=== PATIENT | male | born 1985 | race Caucasian/White ===

== ENCOUNTER 2022-11-27 20:00 | Emergency (ER) | payer OTHER, SELFPAY ==
[2022-11-27] VITALS (11 sets, daily range): BP systolic 113–125; BP diastolic 65–69; PULSE 55–85; RESP 13–22; TEMP 36.6; O2SAT 96–99; BMI 21.9
--- NOTE | 2022-11-27 20:14 | ECG_ITS ---
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
--- NOTE | 2022-11-27 20:17 | ED_ITS ---
Documented by User: BARTOLOME Valdez 11/27/22 22:00 HPI - Chest Pain General Chief Complaint: Chest Pain Stated Complaint: CHEST PAIN Time Seen by Provider: 11/27/22 20:01 Source: patient Mode of arrival: walk-in Limitations: no limitations History of Present Illness HPI narrative: Patient is a 37-year-old male who presents to the emergency department for three hour history of pain in the inferior sternum and epigastrium. He states occasionally the pain radiates through to his back and across the upper abdomen. He states it is a sharp and dull pain. He has had no objective fevers, upper respiratory symptoms. He has a chronic cough and states that he is currently trying to quit smoking. He was a one pack per day cigarette smoker, he is now down to a quart of a pack per day. He denies any history of heart problems, no previous abdominal surgeries. He did have a resection of lung tissue to the right lower lung secondary to pneumothorax fourteen years ago. 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 He has not had any additional surveillance or follow-up for this. He has not had any hemoptysis, leg swelling. He took ibuprofen and a muscle relaxant prior to arrival without improvement. Risk Factors Coronary artery disease risk factors: smoking history Related Data Previous Rx's Medication Instructions Recorded methylprednisolone 4 mg tablets in See Rx Instructions .Route 11/27/22 a dose pack (Medrol (Trav)) .COMPLEX #21 ea tramadol 50 mg tablet 50 mg PO Q4H PRN pain #15 tabs 11/27/22 Allergies Allergy/AdvReac Type Severity Reaction Status Date / Time No Known Drug Allergies Allergy Verified 11/27/22 20:07 Review of Systems ROS Constitutional Denies: fever or chills Ears, nose, mouth, and throat Denies: throat pain or neck pain Cardiovascular Reports: chest pain Respiratory Reports: cough; Denies: shortness of breath Gastrointestinal Reports: abdominal pain; Denies: nausea or vomiting Musculoskeletal Reports: back pain; Denies: neck pain Integumentary/Breast Denies: rash Neurological Denies: headache PFSH PFSH Social History Smoking status: Current every day smoker Exam Narrative Exam Narrative: Gen.: Awake, alert, in no distress Head: Normocephalic, atraumatic ENT: Moist mucous membranes Respiratory: No respiratory distress, lungs clear bilaterally Cardio: Regular rate and rhythm; no appreciable murmur Gastrointestinal: Abdomen is soft, nondistended and nontender to palpation Extremities: Moves extremities equally, no pedal edema Psych: Normal mood and affect Neuro: No focal neuro deficit Skin: Warm, dry, intact Constitutional Vital Signs, click to edit/add: Last Vital Signs Temp 97.8 F 11/27/22 20:03 Pulse 57 L 11/27/22 21:20 Resp 21 11/27/22 21:20 BP 115/65 11/27/22 21:00 Pulse Ox 98 11/27/22 21:20 O2 Del Method Room Air 11/27/22 20:19 Course Vital Signs Vital signs: Vital Signs Temperature 97.8 F 11/27/22 20:03 Pulse Rate 76 11/27/22 20:03 Respiratory Rate 16 11/27/22 20:03 Blood Pressure 125/69 11/27/22 20:03 Pulse Oximetry 98 11/27/22 20:03 Oxygen Delivery Method Room Air 11/27/22 20:03 Temperature 97.8 F 11/27/22 20:03 Pulse Rate 57 L 11/27/22 21:20 Respiratory Rate 21 11/27/22 21:20 Blood Pressure 115/65 11/27/22 21:00 Pulse Oximetry 98 11/27/22 21:20 Oxygen Delivery Method Room Air 11/27/22 20:19 MDM - Chest Pain MDM Narrative Medical decision making narrative: Patient treated with IV fluids, Toradol, Solu-Medrol, Protonix. He has stable vital signs, no EKG changes. Abdomen is soft and benign in the Emergency Room. Labs studies including d-dimer, troponin, LFTs and lipase are within normal limits. Patient sent for abdominal and chest x-rays which showed stable area to the right lower lung. I did review previous CTA of the chest as well as CT of the abdomen and pelvis. Patient had a PET scan one year ago for the abnormal findings in the right lower lung as well as to the liver. 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 I gave him a copy of these results and discuss this with him, it was recommended by the radiologist for a fourteen month follow-up of imaging to the area which was approximately one month ago. Patient was encouraged follow-up with his PCP, have repeat imaging done to confirm benign etiology of the areas. He will be treated for chest wall pain and abdominal pain, likely pleurisy with steroids and a short course of analgesics. Work note provided. Follow-up with PCP and return to the Emergency Room if symptoms change or worsen. He is resting comfortably at reevaluation. Medical Records Data Attestation: I reviewed the patient's medical records. Lab Data Attestation: I reviewed the patient's lab results. Labs: Lab Results 11/27/22 Range/Units 20:00 WBC 8.6 (4.0-11.0) 10^3/uL RBC 4.28 L (4.70-6.10) 10^6/uL Hgb 14.0 (14.0-18.0) g/dL Hct 40.8 L (42.0-54.0) % MCV 95.3 H (80.0-94.0) fL MCH 32.7 (25.9-34.0) pg MCHC 34.3 (29.9-35.2) g/dL RDW 12.7 (11.0-15.0) % Plt Count 217 (150-450) 10^3/uL MPV 11.3 (9.5-13.5) fL Neut % (Auto) 48.1 (43.0-75.0) % Lymph % (Auto) 39.7 (20.5-60.0) % [place] % (Auto) 9.6 (1.7-12.0) % Eos % (Auto) 2.1 (0.9-7.0) % Baso % (Auto) 0.3 (0.2-2.0) % Neut # (Auto) 4.1 (1.4-6.5) 10^3/uL Lymph # (Auto) 3.4 (1.2-3.8) 10^3/uL [place] # (Auto) 0.8 (0.3-0.8) 10^3/uL Eos # (Auto) 0.2 (0.0-0.7) 10^3/uL Baso # (Auto) 0.0 (0.0-0.1) 10^3/uL Abs Immat Gran (auto) 0.02 (0.00-0.03) 10^3/uL Imm/Tot Granulo (auto) 0.2 (0.0-0.5) % PT 10.4 (9.0-11.6) sec INR 0.98 D-Dimer 0.25 (<=0.59) mg/L FEU Sodium 138 (136-145) mmol/L Potassium 3.7 (3.5-5.1) mmol/L Chloride 103 (98-107) mmol/L Carbon Dioxide 28.2 (21.0-32.0) mmol/L Anion Gap 10.5 BUN 14.0 (7.0-18.0) mg/dL Creatinine 1.35 H (0.70-1.30) mg/dL Est GFR ( Amer) >60 (>=60) Est GFR (Non-Af Amer) 59 L (>=60) BUN/Creatinine Ratio 10.4 Glucose 97 (74-106) mg/dL Calcium 8.7 (8.5-10.1) mg/dL Total Bilirubin 0.6 (0.2-1.0) mg/dL AST 28 (15-37) U/L ALT 28 (16-63) U/L Alkaline Phosphatase 89 (46-116) U/L Troponin I High Sens 5.7 (4.0-76.1) pg/mL NT-Pro-B Natriuret Pep 143.0 (<=450.0) pg/mL Total Protein 7.7 (6.4-8.2) g/dL Albumin 4.3 (3.4-5.0) g/dL Globulin 3.4 g/dL Albumin/Globulin Ratio 1.3 Lipase 42.0 L (73.0-393.0) U/L Imaging Data Abdominal x-ray: Attestation: I have reviewed the pertinent imaging results. ECG Data Attestation: I personally reviewed and interpreted this ECG as follows: (Normal sinus rhythm at a rate of sixty-seven, no acute ST elevation or ectopy. EKG reviewed by attending physician) ECG interpretation date: 11/27/22 ECG interpretation time: 20:21 Heart Score History: Slightly/Non-Suspicious ECG: Normal Age: <45 years Risk Factors: 1 or 2 Risk Factors Troponin: <Normal Limit Total Heart Score Recommendations & Risks:: 1 Discharge Plan Discharge Chief Complaint: Chest Pain Clinical Impression: Abdominal pain, Chest pain Patient Disposition: Home, Self-Care Time of Disposition Decision: 21:54 Condition: Good Prescriptions / Home Meds: New tramadol 50 mg tablet 50 mg PO Q4H PRN (Reason: pain) Qty: 15 0RF Rx Instructions: DX: R07.9 methylprednisolone [Medrol (Trav)] 4 mg tablets,dose pack See Rx Instructions .ROUTE .COMPLEX Qty: 21 0RF Rx Instructions: Taper as directed Instructions: Chest Pain (ED), Abdominal Pain (ED) Stand Alone Forms: Portal Instructions Referrals: CRISELDA NEAL [Primary Care Provider] - 1 week Discharge Date/Time: 11/27/22 22:06 Documented by User: Jonathan Singer MD 11/28/22 06:47 HPI - Chest Pain General Chief Complaint: Chest Pain Stated Complaint: CHEST PAIN Time Seen by Provider: 11/27/22 20:01 Related Data Previous Rx's Medication Instructions Recorded methylprednisolone 4 mg tablets in See Rx Instructions .Route 11/27/22 a dose pack (Medrol (Trav)) .COMPLEX #21 ea tramadol 50 mg tablet 50 mg PO Q4H PRN pain #15 tabs 11/27/22 Allergies Allergy/AdvReac Type Severity Reaction Status Date / Time No Known Drug Allergies Allergy Verified 11/27/22 20:07 [facility] Social History Smoking status: Current every day smoker Exam Constitutional Vital Signs, click to edit/add: Last Vital Signs Temp 97.8 F 11/27/22 20:03 Pulse 57 L 11/27/22 21:20 Resp 21 11/27/22 21:20 BP 115/65 11/27/22 21:00 Pulse Ox 98 11/27/22 21:20 O2 Del Method Room Air 11/27/22 20:19 Course Vital Signs Vital signs: Vital Signs Temperature 97.8 F 11/27/22 20:03 Pulse Rate 76 11/27/22 20:03 Respiratory Rate 16 11/27/22 20:03 Blood Pressure 125/69 11/27/22 20:03 Pulse Oximetry 98 11/27/22 20:03 Oxygen Delivery Method Room Air 11/27/22 20:03 Temperature 97.8 F 11/27/22 20:03 Pulse Rate 57 L 11/27/22 21:20 Respiratory Rate 21 11/27/22 21:20 Blood Pressure 115/65 11/27/22 21:00 Pulse Oximetry 98 11/27/22 21:20 Oxygen Delivery Method Room Air 11/27/22 20:19 MDM - Chest Pain Lab Data Labs: Lab Results 11/27/22 Range/Units 20:00 WBC 8.6 (4.0-11.0) 10^3/uL RBC 4.28 L (4.70-6.10) 10^6/uL Hgb 14.0 (14.0-18.0) g/dL Hct 40.8 L (42.0-54.0) % MCV 95.3 H (80.0-94.0) fL MCH 32.7 (25.9-34.0) pg MCHC 34.3 (29.9-35.2) g/dL RDW 12.7 (11.0-15.0) % Plt Count 217 (150-450) 10^3/uL MPV 11.3 (9.5-13.5) fL Neut % (Auto) 48.1 (43.0-75.0) % Lymph % (Auto) 39.7 (20.5-60.0) % [place] % (Auto) 9.6 (1.7-12.0) % Eos % (Auto) 2.1 (0.9-7.0) % Baso % (Auto) 0.3 (0.2-2.0) % Neut # (Auto) 4.1 (1.4-6.5) 10^3/uL Lymph # (Auto) 3.4 (1.2-3.8) 10^3/uL [place] # (Auto) 0.8 (0.3-0.8) 10^3/uL Eos # (Auto) 0.2 (0.0-0.7) 10^3/uL Baso # (Auto) 0.0 (0.0-0.1) 10^3/uL Abs Immat Gran (auto) 0.02 (0.00-0.03) 10^3/uL Imm/Tot Granulo (auto) 0.2 (0.0-0.5) % PT 10.4 (9.0-11.6) sec INR 0.98 D-Dimer 0.25 (<=0.59) mg/L FEU Sodium 138 (136-145) mmol/L Potassium 3.7 (3.5-5.1) mmol/L Chloride 103 (98-107) mmol/L Carbon Dioxide 28.2 (21.0-32.0) mmol/L Anion Gap 10.5 BUN 14.0 (7.0-18.0) mg/dL Creatinine 1.35 H (0.70-1.30) mg/dL Est GFR ( Amer) >60 (>=60) Est GFR (Non-Af Amer) 59 L (>=60) BUN/Creatinine Ratio 10.4 Glucose 97 (74-106) mg/dL Calcium 8.7 (8.5-10.1) mg/dL Total Bilirubin 0.6 (0.2-1.0) mg/dL AST 28 (15-37) U/L ALT 28 (16-63) U/L Alkaline Phosphatase 89 (46-116) U/L Troponin I High Sens 5.7 (4.0-76.1) pg/mL NT-Pro-B Natriuret Pep 143.0 (<=450.0) pg/mL Total Protein 7.7 (6.4-8.2) g/dL Albumin 4.3 (3.4-5.0) g/dL Globulin 3.4 g/dL Albumin/Globulin Ratio 1.3 Lipase 42.0 L (73.0-393.0) U/L Heart Score Total Heart Score Recommendations & Risks:: 1 Discharge Plan Discharge Chief Complaint: Chest Pain Clinical Impression: Abdominal pain, Chest pain Patient Disposition: Home, Self-Care Time of Disposition Decision: 21:54 Condition: Good Prescriptions / Home Meds: New tramadol 50 mg tablet 50 mg PO Q4H PRN (Reason: pain) Qty: 15 0RF Rx Instructions: DX: R07.9 methylprednisolone [Medrol (Trav)] 4 mg tablets,dose pack See Rx Instructions .ROUTE .COMPLEX Qty: 21 0RF Rx Instructions: Taper as directed Instructions: Chest Pain (ED), Abdominal Pain (ED) Stand Alone Forms: Portal Instructions Referrals: CRISELDA NEAL [Primary Care Provider] - 1 week Discharge Date/Time: 11/27/22 22:06
--- NOTE | 2022-11-27 20:18 | PC.NURSE ---
Pt presents to ER for chest pain that has been going on since approximately 5pm Pt states he was at work when the pain began Pt states he took Motrin and a muscle relaxer prior to arrival Pt states the pain worsens with movement and deep breaths Pt has a history of pneumothorax on the right side and was told last year that there was a mass on the base of the right lung Pt denies any recent illness or injuries
[2022-11-27 20:23] LABS: Basophils Percent Auto 0.3 % (0.2-2.0); Eosinophils Absolute Auto 0.2 10^3/uL (0.0-0.7); Eosinophils Percent Auto 2.1 % (0.9-7.0); Hematocrit 40.8 % (42.0-54.0); Immature Granulocytes Abs Auto 0.02 10^3/uL (0.00-0.03); Immature Granulocytes Pct Auto 0.2 % (0.0-0.5); Lymphocytes Absolute Auto 3.4 10^3/uL (1.2-3.8); Lymphocytes Percent Auto 39.7 % (20.5-60.0); Mean Corpuscular HGB Conc 34.3 g/dL (29.9-35.2); Mean Corpuscular Hemoglobin 32.7 pg (25.9-34.0); Mean Corpuscular Volume 95.3 fL (80.0-94.0); Mean Platelet Volume 11.3 fL (9.5-13.5); Monocytes Absolute Auto 0.8 10^3/uL (0.3-0.8); Monocytes Percent Auto 9.6 % (1.7-12.0); Neutrophils Absolute Auto 4.1 10^3/uL (1.4-6.5); Neutrophils Percent Auto 48.1 % (43.0-75.0); Platelet Count 217 10^3/uL (150-450); Red Blood Count 4.28 10^6/uL (4.70-6.10); Red Cell Distribution Width 12.7 % (11.0-15.0); White Blood Count 8.6 10^3/uL (4.0-11.0)
[2022-11-27 20:31] LABS: D Dimer 0.25 mg/L FEU (<=0.59); INR 0.98; Prothrombin Time 10.4 sec (9.0-11.6)
[2022-11-27 20:32] LABS: Alanine Aminotransferase 28 U/L (16-63); Albumin Globulin Ratio 1.3; Albumin Level 4.3 g/dL (3.4-5.0); Alkaline Phosphatase 89 U/L (46-116); Anion Gap 10.5; Aspartate Amino Transferase 28 U/L (15-37); BUN Creatinine Ratio 10.4; Bilirubin Total 0.6 mg/dL (0.2-1.0); Calcium 8.7 mg/dL (8.5-10.1); Carbon Dioxide 28.2 mmol/L (21.0-32.0); Chloride 103 mmol/L (98-107); Estimated GFR (African America >60 (>=60); Estimated GFR (Non-African Ame 59 (>=60); Globulin 3.4 g/dL; Glucose 97 mg/dL (74-106); Potassium 3.7 mmol/L (3.5-5.1); Sodium 138 mmol/L (136-145); Total Protein 7.7 g/dL (6.4-8.2)
[2022-11-27 20:38] LABS: Troponin I High Sensitivity 5.7 pg/mL (4.0-76.1)
--- NOTE | 2022-11-27 20:40 | XR_ITS ---
The [address] [address] Patient Name: CLOVIS ROBLEDO MRN: [id number] date: 1985 Sex: M Assigned Patient Location: ER Current Patient Location: Accession/Order Number: [id number] Exam Date: 11/27/2022 21:25 Report Date: 11/27/2022 22:42 At the request of: FARIDEH SAUNDERS Procedure: XR acute abdomen series EXAMINATION: XR acute abdomen series 11/27/2022 7:40 PM PDT HISTORY: Chest pain/abdominal pain COMPARISONS: Chest x-ray 01/29/2022 CT chest 09/01/2021 FINDINGS: Chest findings: Lines/tubes/other: None. Heart and mediastinum: The heart and the mediastinum are within normal limits for technique. Bones: No acute osseous abnormality. Lungs: Juxtapleural nodule in the right lateral base, similar. Right pleural flattening and right pleural calcifications, similar. No new pulmonary opacity. No pulmonary edema. Pleura: There is no significant pleural effusion or pneumothorax. Other: None. Abdominal findings: Nonobstructive bowel gas pattern. No pneumoperitoneum, pneumatosis, or portal venous gas. No abnormal soft tissue calcifications. Stool burden is average. XR/XR acute abdomen series IMPRESSION: No acute abnormality demonstrated in the chest or abdomen. Electronically authenticated by: ISAC ANTONIO Date: 11/27/2022 22:42
[2022-11-27] MEDS: METHYLPREDNISOLONE SOD SUCC PF 125 MG/2 ML VIAL IVP (20:48)
[2022-11-27] MEDS: ONDANSETRON PF 4 MG/2 ML VIAL IV (20:48)
[2022-11-27] MEDS: KETOROLAC TROMETHAMINE 30 MG/ML VIAL IVP (20:48)
[2022-11-27] MEDS: 0.9 % SODIUM CHLORIDE 1,000 ML 999 ML IV (20:49)
[2022-11-27] MEDS: PANTOPRAZOLE SODIUM 40 MG VIAL IV (20:49)
== END 2022-11-27 22:06 | disposition home or self-care (01) ==
PROVIDERS: Physician Assistant; Emergency Provider Internal Medicine; PCP Nurse Practitioner Family
DX: R07.9 Chest pain, unspecified (principal); R10.9 Unspecified abdominal pain; F17.210 Nicotine dependence, cigarettes, uncomplicated; Z90.2 Acquired absence of lung [part of]
CPT/HCPCS: 36415; 74022; 80053; 83690; 83880; 84484; 85025; 85378; 85610; 93005; 96374; 96375; 99285; J2930

== ENCOUNTER 2024-10-01 09:48 | Outpatient (OUT) | payer OTHER, SELFPAY ==
--- OUTSIDE RECORDS SUMMARY | 2015-05-30 09:22 | XMS_ITS | Continuity of Care Document ---
Author Organization [facility] Address [address] [place] [address] Phone Care Team Providers Care Senior Ui Designer Name Role Phone Nurse, [facility] Unavailable Unavailable Allergies, Adverse Reactions, Alerts [...] Diagnoses Date Provider Providers Copied on Encounter [facility], [address], [place], [place], [address], [place] tel:[phone] [facility] No Information 6 Nurse [facility]. [address] [place], [address], [place]. tel:[phone] OFFICE/OUTPA TIENT VISIT, EST [facility], [address] [address], [place], [place], [address], [place] tel:[phone] [facility] [place] * F/U Depression (chief complaint) Finger pain, rightDepression 5 Bursnall Pily. [address] [place], [address], [place]. tel:[phone] [facility], [address] [address], [place], [place], [address], [place] tel:[phone] [facility] [place] Diagnosis deferred 5 No Information OFFICE/OUTPA TIENT VISIT, EST [facility], [address] [address], [place], [place], [address], [place] tel:[phone] [facility] * F/U Labs (chief complaint) DepressionHistor y of pneumothoraxLeft -sided low back pain without sciatica 5 Bursnall Pily. [address] [place], [address], [place]. tel:[phone] [facility], [address] [address], [place], [place], [address], [place] tel:[phone] [facility] [place] No Information 5 Pharmacy [facility]. [address] [place], [address]. tel:[phone] [facility], [address] [address], [place], [place], [address], [place] tel:[phone] [facility] [place] Diagnosis deferred 5 No Information OFFICE/OUTPA TIENT VISIT, NEW [facility], [address] [address], [place], [place], [address], [place] tel:[phone] [facility] [place] * New pt visit (chief complaint) History of pneumothoraxDepr essionLeft-sided low back pain without sciaticaHistory of substance abuse 5 Bursnall Pily. [address] [place], [address], [place]. tel:[phone] Family History Family Member Type Diagnosis Age At Onset Brother Problem (finding) prostate cancer Payers Payer name Insurance type Covered alliance party ID Georgia blackman(s) [facility] Medicaid [id number] Social History Type Description Quantity Date Captured [...] all the time at work, and works [employer]. * F/U Labs Patient presents for lab [...] He did see a lung specialist in [place], twice. He did not get specific treatment thought was short of breath at that point.He is under a great deal of stress as just moved here, girlfriend had baby a month early and baby was in NICU and now is 3 weeks old, has other kids in [place] and lost custody to exwife. He lost [...] to Left-sided low back pain without sciatica Patient given number again for pulmonology clinic., He will call today. Related to History of pneumothorax Labs are appropriate to start medication for [...] of all instructions. Related to Depression Patient is advised t o continue abstinence [...]
--- OUTSIDE RECORDS SUMMARY | 2020-06-10 08:03 | XMS_ITS | Continuity of Care Document ---
Author Organization [facility] Address [address] [place] [address] Phone Care Team Providers Care Marketing Area Manager Name Role Phone Dc Peraza Unavailable Unavailable Allergies, Adverse Reactions, Alerts Substance Reaction Status Criticality No Known Allergies Active No Inform ation Procedures Procedure Date Covid Testing [facility] Prophylaxis Adult Tobacco Counseling Oral Hygiene Instruction PPE Intraoral-periapical 1st Film 0 Tyjyxwddc-mffmsodllj-zuad Additional Aug Shnnafrzv-aeszmjmcaw-xeux Additional Aug Comp Oral Eval New/estab Patient [...] Diagnoses Date Provider Providers Copied on Encounter [facility], [address] [place], [place], [id number], [place] tel:[phone] [facility] No Information May- 1 Beverley Du. [address] [place] [address], [id number] , [place]. tel:[phone] [facility], [address] [place] [address], [id number], [place] tel:[phone] COVID ECHD Encounter for screening for other viral disease 0 Beverley Du. [address] [place], [place], [id number] , [place]. tel:[phone] [facility], [address] [place], [place], [id number], [place] tel:[phone] Dental Clinic Prophy (chief complaint) Encounter for screening for dental disorders 0 Green DMD Michelle. [address] [place], [place], [id number] , [place]. tel:[phone] [facility], [address] [place], [place], [id number], [place] tel:[phone] [facility] Dental New (chief complaint) Encounter for screening for dental disorders 0 Peter Kumarry. [address] [place], [place], [id number] , [place]. tel:[phone] [facility], [address] [place], [place], [id number], [place] tel:[phone] Dental Clinic Dental Emergency (chief complaint) Encounter for screening for dental disorders 0 Peter SPIVEY Michelle. [address] [place], [place], [id number] , [place]. tel: [phone] OFFICE/OUTPAT IENT VISIT, EST [facility], [address] [place], [place], [id number], [place] tel:[phone] [facility] Influenza Vaccine 3-201 1 Beverley Du. [address] [place], [place], [id number] , [place]. tel:[phone] [facility], [address] [place], [place], [id number], [place] tel:[phone] [facility] No Information 2-200 9 Viscdenise Du. [address] [place], [place], [id number] , [place]. tel: [phone] [facility], [address] [place], [place], [id number], [place] tel:[phone] Flu No Information 8 Beverley Du. [address] [place], [place], [id number] , [place]. tel:[phone] Family History Family Member Type Diagnosis Age [...]
--- OUTSIDE RECORDS SUMMARY | 2024-09-27 05:30 | XMS_ITS ---
Author Organization [facility] in [place] Address [address] [facility] [place] [address] Care Team Providers Care Small Animal Caretaker Name Role Phone Poornima Ramos Primary Care Provider REASON FOR VISIT want pe Encounters Encounter Location Date Provider Diagnosis [facility] [address] [facility] [place] [address] 09/27/2024 Poornima Ramos Plan Of Treatment No Information Progress Notes * SHREEIfeanyiKiraOB:1985 (38 yo M)Acc No.[id number]:09/27/2024 UNLOCKED PROGRESS NOTE Progress Note Patient: Elliott DOHERTY Provider: Marlo MAYS)BENJI :1985 A ge:38 Y S ex:Male Date:09/27/2024 Address:[address] [place] [address], [address], [facility] Subjective: * Chief Complaints: * 1 . Want pe. * Medical History: Objective: * Vitals: Assessment: Plan: * Treatment: * * Electronic signature of La Torres NP, PAINT LINE PRODUCTION SUPERVISOR.LAB HEAD.[id number] on 10/01/2024 at 09:52 AM EDT Sign off status: Pending Visit Status: C ANCPHONE (Cancelled Phone) * Provider: Marlo MAYS), BENJI Date: 09/27/2024 Generated for Printi ng/Faxing/eTransmitting on: 10/01/2024 09:52 AM EDT
--- OUTSIDE RECORDS SUMMARY | 2024-10-01 05:00 | XMS_ITS ---
Author Organization [facility] in [place] Address [address] [place] [address] Care Team Providers Care Price Analyst Name Role Phone Poornima Ramos Primary Care Provider Allergies No Known Allergies REASON FOR VISIT Physical, Left elbow pain- when sleeping or keeps arm in certain spot for too long then it gets stiff- no known injury, Left hand knuckle, index finger, pain in that area- cant bend it all the way - no known injury Social History Tobacco Use: Social History Observation Description Date Details (start date - stop date) Current Smoker 03/14/1999 - NA Tobacco Use/Smoking Question Answer Notes Patient is a current smoker When did you start smoking? 03/14/1999 How often do you smoke cigarettes? every day How many cigarettes a day do you smoke? 6-10 How soon after you wake up d o you smoke your first cigarette? 6-30 minutes Are you interested in quitting? Thinking about q uitting Additional Findings: Tobacco User Light cigarett e smoker ((1-9 cigs/day) Problems Problem Type SNOMED Code ICD Code Onset Dates Problem Status W/U Status Risk Notes Problem Neck pain (M54.2) Active confirmed Vital Signs Weight 129.4 lbs 10/01/2024 Height 67 in 10/01/2024 Blood pressure systolic 112 mm Hg 10/02/19 25 Blood pressure diastolic 80 mm Hg 025 BMI 20.26 kg/m2 10/01/2024 Encounters Encounter Location Date Provider Diagnosis [facility] [address] [facility] [place] [address] 10/01/2024 Poornima Ramos Wellness examination Z00.00 ; Neck pain M54.2 ; Back pain M54.9 and Lump R22.9 Assessments Encounter Date Diagnosis (ICD Code) Assessment Notes Treatment Notes Treatment Clinical Notes Section Notes 10/01/2024 Wellness examination (ICD-10 - Z00.00) 10/01/2024 Neck pain (ICD-10 - M54.2) 10/01/2024 Back pain (ICD-10 - M54.9) 10/01/2024 Lump (ICD-10 - R22.9) Plan Of Treatment Pending Test Test Name Order Date HEMOGLOBIN A1C (GLYCO) 10/01/2024 INSULIN, TOTAL 10/01/2024 LIPID PANEL (CHOL/TRIG/HDL/LDL) 10/02/19 URIC ACID 10/01/2024 MELINDA DIRECT 10/01/2024 ANTISTREPTOLYSIN O AB (ASO) 10/01/2024 CRP 10/01/2024 RHEUMATOID FACTOR 10/01/2024 URIC ACID SERUM 10/01/2024 THYROID PANEL (T4/TSH/FREE T3) XR lumbar spine 2-3V 10/01/2024 XR cervical spine 2-3V 10/01/2024 CMP (COMP MET RAE) w/eGFR CKD-EPI 2024 CBC WITH DIFF 10/01/2024 Progress Notes * Ifeanyi ROBLEDOinDOB:1985 (38 yo M)Acc No.[id number]:10/01/2024 UNLOCKED PROGRESS NOTE Progress Note Patient: Elliott DOHERTY Provider: Marlo Ramos ([facility]), PRINCIPAL SCIENTIST :1985 A ge:38 Y S ex:Male Date:10/01/2024 Address:[address] [place], [place] [address] Check In:08:52 AM ESTCheck O ut:09:35 AM EST Subjective: * Chief Complaints: * 1 . Physical. 2. Left elbow pain- when sleeping or keeps arm in certain spot for too long then it gets stiff- no known injury. 3. Left hand knuckle, index finger, pain in that area- cant bend it all the way - no known injury. * HPI: G eneral: PET scan saw specialist in [place] low back and neck pain for years US left mid back lump smokes for anxiety and pain. * Medical History: P ulmonary emphysema, unspecified emphysema type, History of heart attack, Anxiety and depression, Current smoker, Lung mass, H/O pneumothorax. * Surgical History: L good Surgery 2007. * Hospitalization/Major Diagno stic Procedure: P heumothorax 2007. * Family History: F ather: alive. M other: alive. B rother(s): alive, testicular cancer, diagnosed with Other malignant neoplasm of unspecified site. S ister(s): alive. S on(s): alive. D mustaphaer(s): alive. 2 brother(s) , 2 sister(s) . 1 son(s) , 4 daughter(s) - healthy. . * Social History: T obacco Use: T obacco Use/Smoking P atient is a c urrent smoker W hen did you start smoking? 0 03/14/1999 H ow often do you smoke cigarettes? e very day H ow many cigarettes a day do you smoke? 6 -10 H ow soon after you wake up do you smoke your first cigarette? 6 -30 minutes A re you interested in quitting? T hinking about quitting A dditional Findings: Tobacco User L ight cigarette smoker ((1-9 cigs/day) * Medications: D iscontinued PROzac(FLUoxetine HCl) 20 MG Capsule 1 capsule Orally Once a day , Discontinued Varenicline Tartrate 1 MG Tablet as directed Orally Twice a day , Discontinued Varenicline Tartrate (Starter) 0.5 MG X 11 & 1 MG X 42 Tablet Therapy Pack as directed Orally as directed , Medication List reviewed and reconciled with the patient * Allergies: N .K.D.A. Objective: * Vitals: W t:129.4lbs, Ht: 67 in, BP:112/80mm Hg, BMI:20.26Index, Ht-cm: 170.18 cm, Wt-k.7 kg. Assessment: * Assessment: 1. W ellness examination - Z00.00 (Primary) 2 . N nelly pain - M54.2 ? 3 . B ack pain - M54.9 4 . L ump - R22.9 Plan: * Treatment: 2. N nelly pain I maging: XR lumbar spine 2-3V I maging: XR cervical spine 2-3V 3. B ack pain I maging: XR lumbar spine 2-3V * * Electronic signature of La Torres NP, MAILROOM PERSONNEL.PRINCIPAL SCIENTIST.[id number] on 10/01/2024 at 09:52 AM EDT Sign off status: Pending Visit Status: C HK (Check Out) * Provider: Marlo Ramos (TTC), PRINCIPAL SCIENTIST Date: 10/01/2024 Generated for Poornima mejia/Roderick/eTransmitting on: 10/01/2024 09:52 AM EDT History and Physical Notes * HPI (History of Present Illness) Category Sub-Category Detail Notes Category Not es General PET scan saw specialist in [place] low back and neck pain for years US left mid back lump smokes for anxiety and pain
--- OUTSIDE RECORDS SUMMARY | 2024-10-01 09:53 | XMS_ITS | Clinical Summary ---
Author Organization The [facility] Address [address] [place] [address] Care Team Providers Care Printing Roller Handler Name Role Phone Unavailable Primary Care Provider Unavailabl e Social History Tobacco Use Types Packs/Day Years Used Date Smoking Tobacco: Never Assessed [place] Safety & Environment Answer Date Rec orded Fear of Current or Ex-Partner Not on file Emotionally Abused Not on file 05/05/2023 Physically Abused Not on file 05/05/2023 Sexually Abused Not on file 05/05/2023 Physically or Sexually Abused Not on file Sex and Gender Information Value Date Recorded Sex Assigned at Not on file Legal Sex Male 12:44 AM EDT Gender Identity Not on file Sexual Orientation Not on file Last Filed Vital Signs Vital Sign Reading Time Taken Comments Blood Pressure 116/81 09/01/2021 1:18 PM EDT Pulse 58 09/01/2021 1:18 PM EDT Temperature 36.6 C (97.8 F) 09/01/2021 1:18 PM EDT Respiratory Rate - - Oxygen Saturation 100% 07/21/2021 2:07 PM EDT Inhaled Oxygen Concentration - - Weight 63.9 kg (140 lb 12.8 oz) 09/01/2021 1:18 PM EDT Height 170.2 cm (5' 7 ) 09/01/2021 1:18 PM EDT Body Mass Index 22.05 09/01/2021 1:18 PM EDT Plan of Treatment Health Maintenance Due Date Last Done Comments Depression Screening 1997 Varicella Vaccines (1 of 2 - 13+ 2-dose series) 1998 Hepatitis B Vaccines (1 of 3 - 19+ 3-dose series) 2004 Pneumococcal Vaccine: Pediat rics (0 to 5 Years) and At-Risk Patients (6 to 64 Years) (1 of 2 - PCV) 2004 Adult Tetanus 11/15/2007 COVID-19 Vaccine (1 - 2023-2 5 season) 2023 Influenza Vaccine (#1) 2024 Zoster Vaccines (1 of 2) 11/15/2035 HIB Vaccines Aged Out No longer eligi ble based on patient's age to complete this topic HPV Vaccines Aged Out No longer eligi ble based on patient's age to complete this topic IPV Vaccines Aged Out No longer eligi ble based on patient's age to complete this topic Meningococcal B Vaccine Aged Out No l onger eligible based on patient's age to complete this topic Meningococcal Vaccine Aged Out No judy satnam eligible based on patient's age to complete this topic Rotavirus Vaccines Aged Out No longer eligible based on patient's age to complete this topic Insurance [employer] [place] [employer]
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
--- NOTE | 2024-10-01 10:08 | XR_ITS ---
The [place] [id number] Patient Name: CLOVIS ROBLEDO MRN: [id number] date: 1985 Sex: M Assigned Patient Location: LAB Current Patient Location: LAB Accession/Order Number: [id number] Exam Date: 10/01/2024 10:51 Report Date: 10/01/2024 10:51 At the request of: CRISELDA NEAL Procedure: XR lumbar spine 2-3V LUMBAR SPINE - 2 views CLINICAL HISTORY: Neck Pain, Back Pain COMPARISON: None FINDINGS: Vertebral body and disc space heights appear maintained. Mild endplate degenerative changes. Facet joints appear grossly unremarkable. SI joints also appear unremarkable. XR/XR lumbar spine 2-3V IMPRESSION: MILD ENDPLATE DEGENERATIVE CHANGES WITHOUT SIGNIFICANT DISC HEIGHT LOSS. Impression dictated by: Cory Quiroga Jr., DDinoODino 10/01/2024 10:51 AM Dictation Location: [place] [address] Electronically authenticated by: [id number] Y Date: 10/01/2024 10:51
--- NOTE | 2024-10-01 10:08 | XR_ITS ---
The [place] [id number] Patient Name: CLOVIS ROBLEDO MRN: [id number] date: 1985 Sex: M Assigned Patient Location: LAB Current Patient Location: LAB Accession/Order Number: [id number] Exam Date: 10/01/2024 10:50 Report Date: 10/01/2024 10:51 At the request of: CRISELDA NEAL Procedure: XR cervical spine 2-3V CERVICAL SPINE 3 views: CLINICAL HISTORY: Neck Pain, Back Pain COMPARISON: None FINDINGS: Vertebral body heights appear maintained. Mild disc space narrowing C4-5. Mild endplate and facet joint degenerative change. No prevertebral soft tissue swelling. XR/XR cervical spine 2-3V IMPRESSION: MILD SPONDYLOSIS C4-5. Impression dictated by: Cory Quiroga Jr., DDinoODino 10/01/2024 10:51 AM Dictation Location: [place] [address] Electronically authenticated by: [id number] Y Date: 10/01/2024 10:51
[2024-10-01 10:09] LABS: Hematocrit 44.1 % (42.0-54.0); Hemoglobin 15.3 g/dL (14.0-18.0); Immature Granulocytes Abs Auto 0.02 10^3/uL (0.00-0.03); Immature Granulocytes Pct Auto 0.3 % (0.0-0.5); Lymphocytes Absolute Auto 1.6 10^3/uL (1.2-3.8); Mean Corpuscular HGB Conc 34.7 g/dL (29.9-35.2); Mean Corpuscular Hemoglobin 33.8 pg (25.9-34.0); Mean Corpuscular Volume 97.4 fL (80.0-94.0); Platelet Count 194 10^3/uL (150-450); Red Blood Count 4.53 10^6/uL (4.70-6.10); White Blood Count 7.0 10^3/uL (4.0-11.0)
[2024-10-01 12:54] LABS: Alanine Aminotransferase 32 U/L (16-63); Albumin Globulin Ratio 1.1; Albumin Level 3.9 g/dL (3.4-5.0); Alkaline Phosphatase 93 U/L (46-116); Anion Gap 13.8; Aspartate Amino Transferase 26 U/L (15-37); Blood Urea Nitrogen 18.0 mg/dL (7.0-18.0); Calcium 9.1 mg/dL (8.5-10.1); Carbon Dioxide 25.9 mmol/L (21.0-32.0); Chloride 105 mmol/L (98-107); Cholesterol 134 mg/dL (<=200); Estimated GFR (African America >60 (>=60 mL/min/1.73m^2); Estimated GFR (Non-African Ame >60 (>=60 mL/min/1.73m^2); Free T3 2.45 pg/mL (2.18-3.98); Globulin 3.7 g/dL; Glucose 94 mg/dL (74-106); HDL Cholesterol 44 mg/dL (40-60); Potassium 3.7 mmol/L (3.5-5.1); Sodium 141 mmol/L (136-145); Thyroid Stimulating Hormone 1.925 uIU/mL (0.358-3.740); Total Protein 7.6 g/dL (6.4-8.2); Triglycerides 50 mg/dL (<=150); Uric Acid 3.5 mg/dL (3.5-7.2); VLDL CHOLESTEROL 10.0 mg/dL
[2024-10-03 10:10] LABS: Antinuclear Antibodies, IFA Negative (.)
== END 2024-10-01 09:49 | disposition home or self-care (01) ==
LOC: LAB 09:50
PROVIDERS: PCP Nurse Practitioner Family; Visit Provider Nurse Practitioner Family
DX: Z00.00 Encounter for general adult medical examination without abnormal findings (principal); M54.2 Cervicalgia; M54.9 Dorsalgia, unspecified; M51.369 Other intervertebral disc degeneration, lumbar region without mention of lumbar back pain or lower extremity pain; M47.812 Spondylosis without myelopathy or radiculopathy, cervical region
CPT/HCPCS: 36415; 72040; 72100; 80053; 80061; 83036; 83525; 84436; 84443; 84481; 84550; 85025; 86038; 86060; 86140; 86431

== ENCOUNTER 2024-10-03 09:17 | Outpatient (OUT) | payer OTHER, SELFPAY ==
--- OUTSIDE RECORDS SUMMARY | 2015-05-30 09:22 | XMS_ITS | Continuity of Care Document ---
Author Organization [facility] Address [address] [place] [address] Phone Care Team Providers Care Extender Name Role Phone Nurse, [facility] Unavailable Unavailable Allergies, Adverse Reactions, Alerts [...] Diagnoses Date Provider Providers Copied on Encounter [facility], [address], [place], [place], [address], [place] tel:[phone] [facility] No Information 6 Nurse [facility]. [address] [place], [address], [place]. tel:[phone] OFFICE/OUTPA TIENT VISIT, EST [facility], [address] [address], [place], [place], [address], [place] tel:[phone] [facility] * F/U Depression (chief complaint) Finger pain, rightDepression 5 Bursnall Pily. [address] [place], [address], [place]. tel:[phone] [facility], [address] [address], [place], [place], [address], [place] tel:[phone] [facility] Diagnosis deferred 5 No Information OFFICE/OUTPA TIENT VISIT, EST [facility], [address] [address], [place], [place], [address], [place] tel:[phone] [facility] * F/U Labs (chief complaint) DepressionHistor y of pneumothoraxLeft -sided low back pain without sciatica 5 Bursnall Pily. [address] [place], [address], [place]. tel:[phone] [facility], [address] [address], [place], [place], [address], [place] tel:[phone] [facility] No Information 5 Pharmacy [facility]. [address] [place], [address]. tel:[phone] [facility], [address] [address], [place], [place], [address], [place] tel:[phone] [facility] Diagnosis deferred 5 No Information OFFICE/OUTPA TIENT VISIT, NEW [facility], [address] [address], [place], [place], [address], [place] tel:[phone] [facility] * New pt visit (chief complaint) History of pneumothoraxDepr essionLeft-sided low back pain without sciaticaHistory of substance abuse 5 Bursnall Pily. [address] [place], [address], [place]. tel:[phone] Family History Family Member Type Diagnosis Age At Onset Brother Problem (finding) prostate cancer Payers Payer name Insurance type Covered green party ID Georgia blackman(s) [facility] Medicaid [id number] Social History Type Description Quantity Date Captured [...] counseling completed Referral ordered Referral Ordered: Pulmonology ordered Referral Ordered: Physical Therapy ordered History Of Present Illness Encounter Date Complaint History Of Prese nt Illness * F/U Depression Patient is not taking meds. He has not called Myesha Suarez to get into counseling. His R pointer finger knuckle has been hurting for 2 months. He reports that he smashes hands all the time at work, and works [employer]. * F/U Labs Patient presents for lab [...] He did see a lung specialist in [place], twice. He did not get specific treatment thought was short of breath at that point.He is under a great deal of stress as just moved here, girlfriend had baby a month early and baby was in NICU and now is 3 weeks old, has other kids in [place] and lost custody to exwife. He lost [...]
--- OUTSIDE RECORDS SUMMARY | 2020-06-10 08:03 | XMS_ITS | Continuity of Care Document ---
Author Organization [facility] Address [address] [place] [address] Phone Care Team Providers Care Chief Resource Officer Name Role Phone Dc Peraza Unavailable Unavailable Allergies, Adverse Reactions, Alerts Substance Reaction Status Criticality No Known Allergies Active No Inform ation Procedures Procedure Date Covid Testing [facility] Prophylaxis Adult Tobacco Counseling Oral Hygiene Instruction PPE Intraoral-periapical 1st Film 0 Mgvfclwmm-xkdetvgjla-hulf Additional Aug Ijutnwjyy-zijvzxcaoy-knkm Additional Aug Comp Oral Eval New/estab Patient [...] Diagnoses Date Provider Providers Copied on Encounter [facility], [address] [place], [place], [id number], [place] tel:[phone] [facility] No Information May- 1 Beverley Du. [address] [place] [address], [id number] , [place]. tel:[phone] [facility], [address] [place] [address], [id number], [place] tel:[phone] COVID ECHD Encounter for screening for other viral disease 0 Beverley Du. [address] [place], [place], [id number] , [place]. tel:[phone] [facility], [address] [place], [place], [id number], [place] tel:[phone] Dental Clinic Prophy (chief complaint) Encounter for screening for dental disorders 0 Green DMD Michelle. [address] [place], [place], [id number] , [place]. tel:[phone] [facility], [address] [place], [place], [id number], [place] tel:[phone] Dental Clinic Dental New (chief complaint) Encounter for screening for dental disorders 0 Peter Kumarry. [address] [place], [place], [id number] , [place]. tel:[phone] [facility], [address] [place], [place], [id number], [place] tel:[phone] Dental Clinic Dental Emergency (chief complaint) Encounter for screening for dental disorders 0 Peter SPIVEY Michelle. [address] [place], [place], [id number] , [place]. tel: [phone] OFFICE/OUTPAT IENT VISIT, EST [facility], [address] [place], [place], [id number], [place] tel:[phone] Rosie [facility] Influenza Vaccine 3-201 1 Beverley Du. [address] [place], [place], [id number] , [place]. tel:[phone] [facility], [address] [place], [place], [id number], [place] tel:[phone] [facility] No Information 2-200 9 Viscdenise Du. [address] [place], [place], [id number] , [place]. tel: [phone] [facility], [address] [place], [place], [id number], [place] tel:[phone] Flu No Information 8 Beverley Du. [address] [place], [place], [id number] , [place]. tel:[phone] Family History Family Member Type Diagnosis Age At Onset Father Problem Alive and well Mother Problem Alive and well Immunizations Vaccine Date Status Comments Flu (split) (3 yrs or older) administered Source: New Immunization Record Payers Payer name Insurance type Covered republican ID Authoriza tion(s) No Information Social History [...] to Encounter for screening for dental disorders) ordered Referral Ordered: Referrals: Dentistry. Evaluate and treat ordered [...]
--- OUTSIDE RECORDS SUMMARY | 2024-10-01 05:00 | XMS_ITS ---
Author Organization [facility] in [place] Address [address] [place] [address] Care Team Providers Care Quality Assurance Analyst Name Role Phone Poornima Ramos Primary Care Provider Allergies No Known Allergies Results Component Value Reference Range Notes CRP Reviewed date:10/02/2024 08:23:45 AM Interpretation: Performing Lab: Notes/Report: [facility] , C Reactive Protein 2.65 <=0.50 mg/dL Performing Lab: see note ML - [facility] LB URIC ACID SERUM Reviewed date:10/02/2024 08:23:45 AM Interpretation: Performing Lab: Notes/Report: [facility] , Uric Acid 3.5 3.5-7.2 mg/dL Performing Lab: see note ML - [facility] LB XR lumbar spine 2-3V Reviewed date:10/02/2024 08:23:45 AM Interpretation: Performing Lab: Notes/Report: Source Facility: [place] [address] [place] [address] XRay Report Signed Patient: CLOVIS SWANN MR#: [id number] : 1985 Acct:[id number] Age/Sex: 38 / M ADM Date: 10/01/24 Loc: LAB Attending Dr: POORNIMA RAMOS Ordering Physician: POORNIMA RAMOS Date of Service: 10/01/24 Procedure(s): XR lumbar spine 2-3V Accession Number(s): [id number] cc: POORNIMA RAMOS [place] [address] Patient Name: CLOVIS SWANN MRN: [id number] date: 1985 Sex: M Assigned Patient Location: LAB Current Patient Location: LAB Accession/Order Number: [id number] Exam Date: 10/01/2024 10:51 Report Date: 10/01/2024 10:51 At the request of: POORNIMA RAMOS Procedure: XR lumbar spine 2-3V LUMBAR SPINE - 2 views CLINICAL HISTORY: Neck Pain, Back Pain COMPARISON: None FINDINGS: Vertebral body and disc space heights appear maintained. Mild endplate degenerative changes. Facet joints appear grossly unremarkable. SI joints also appear unremarkable. XR/XR lumbar spine 2-3V IMPRESSION: MILD ENDPLATE DEGENERATIVE CHANGES WITHOUT SIGNIFICANT DISC HEIGHT LOSS. Impression dictated by: Cory Quiroga Jr., D.O. 10/01/2024 10:51 AM Dictation Location: [place] [address] Electronically authenticated by: [id number] Y Date: 10/01/2024 10:51 Dictated By: Cory Quiroga M.D. Signed By: 10/01/24 1054 DD/ 1051 TD/TT: Diesel Power Shovel Operator: [place] [address] XRay Report Signed Patient: LIZZIE SWANN MR#: [id number] : 1985 Acct:[id number] Age/Sex: 38 / M ADM Date: 10/01/24 Loc: LAB Attending Dr: POORNIMA RAMOS Ordering Physician: POORNIMA RAMOS Date of Service: 10/01/24 Procedure(s): XR lum bar spine 2-3V Accession Number(s): [id number] cc: POORNIMA RAMOS [address] [address] Patient Name: CLOVIS SWANN MRN: [id number] date: 1985 Sex: M Assigned Patient Location: LAB Current Patient Loca tion: LAB Accession/Order Numb er: [id number] Exam Date: 10/01/2024 10:51 Report Date: 10/01/2024 10:51 At the request of: POORNIMA RAMOS Procedure: XR lumbar spine 2-3V LUMBAR SPINE - 2 views CLINICAL HISTORY: Ne ck Pain, Back Pain COMPARISON: None FINDINGS: Vertebral body and disc space heights appear maintained. Mild endplate degenerativ e changes. Facet joints appear grossly unremarkable. SI joints also appear unremarkable. X R/XR lumbar spine 2-3V IMPRESSION: MILD ENDPLATE DEGENERATIVE CHANGES WITHOUT SIGNIFICANT DISC HEIGHT LOSS. Impression dictated by: Cory Quiroga Jr., D.O. 10/01/2024 10:51 AM Dictation Location: [place] [address] Electronically authenticated by: [id number] Y Date: 10/01/2024 10:51 Dictated By: Cory Quiroga M.D. Signed By: 10/01/24 1054 DD/ 1051 TD/TT: Diesel Power Shovel Operator: XR cervical spine 2-3V Reviewed date:10/02/2024 08:23:45 AM Interpretation: Performing Lab: Notes/Report: Source Facility: [place] [address] XRay Report Signed Patient: CLOVIS SWANN MR#: [id number] : 1985 Acct:[id number] Age/Sex: 38 / M ADM Date: 10/01/24 Loc: LAB Attending Dr: POORNIMA RAMOS Ordering Physician: POORNIMA RAMOS Date of Service: 10/01/24 Procedure(s): XR cervical spine 2-3V Accession Number(s): [id number] cc: POORNIMA RAMOS [place] [address] Patient Name: CLOVIS SWANN MRN: [id number] date: 1985 Sex: M Assigned Patient Location: LAB Current Patient Location: LAB Accession/Order Number: [id number] Exam Date: 10/01/2024 10:50 Report Date: 10/01/2024 10:51 At the request of: POORNIMA RAMOS Procedure: XR cervical spine 2-3V CERVICAL SPINE 3 views: CLINICAL HISTORY: Neck Pain, Back Pain COMPARISON: None FINDINGS: Vertebral body heights appear maintained. Mild disc space narrowing C4-5. Mild endplate and facet joint degenerative change. No prevertebral soft tissue swelling. XR/XR cervical spine 2-3V IMPRESSION: MILD SPONDYLOSIS C4-5. Impression dictated by: Cory Quiroga Jr., D.O. 10/01/2024 10:51 AM Dictation Location: [place] [address] Electronically authenticated by: [id number] Y Date: 10/01/2024 10:51 Dictated By: Cory Quiroga M.D. Signed By: 10/01/24 1053 DD/ 1051 TD/TT: Diesel Power Shovel Operator: [place] [address] XRay Report Signed Patient: LIZZIE SWANN MR#: [id number] : 1985 Acct:[id number] Age/Sex: 38 / M ADM Date: 10/01/24 Loc: LAB Attending Dr: POORNIMA RAMOS Ordering Physician: POORNIMA RAMOS Date of Service: 10/01/24 Procedure(s): XR cer vical spine 2-3V Accession Number(s): [id number] cc: POORNIMA RAMOS [place] [id number] Patient Name: CLOVIS SWANN MRN: [id number] date: 1985 Sex: M Assigned Patient Location: LAB Current Patient Loca tion: LAB Accession/Order Numb er: [id number] Exam Date: 10/01/2024 10:50 Report Date: 10/01/2024 10:51 At the request of: POORNIMA RAMOS Procedure: XR cervic al spine 2-3V CERVICAL SPINE 3 views: CLINICAL HISTORY: Ne ck Pain, Back Pain COMPARISON: None FINDINGS: Vertebral body heigh ts appear maintained. Mild disc space narrowing C4-5. Mild endplate and fa cet joint degenerative change. No prevertebral soft tissue swelling. X R/XR cervical spine 2-3V IMPRESSION: MILD SPONDYLOSIS C4-5. Impression dictated by: Artemio Spencer Jr.ODino 10/01/2024 10:51 AM Dictation Location: [place] [address] Electronically authenticated by: [id number] Y Date: 10/01/2024 10:51 Dictated By: Cory Quiroga M.D. Signed By: 10/01/24 1053 DD/ 50 TD/TT: Diesel Power Shovel Operator: REASON FOR VISIT Physical, Left elbow pain- when sleeping or keeps arm in certain spot for too long then it gets stiff- no known injury, Left hand knuckle, index finger, pain in that area- cant bend it all the way - no known injury Medications Medication SIG (Take, Route, Frequency, Duration) Notes Start Date End Date Status Varenicline Tartrate (Starter) 0.5 MG X 11 & 1 MG X 42 as directed Orally as directed for 30 days 06/17/2022 Active Varenicline Tartrate 1 MG as directed Or ally Twice a day for 30 days 06/17/2022 Active predniSONE 20 MG 2 tablet Orally Once a day for 5 days 10/01/2024 Active Diclofenac Sodium 75 MG 1 tablet as need ed Orally Twice a day for 30 days 10/01/2024 Active traZODone HCl 50 MG 1 tablet at bedtime as needed Orally Once a day for 30 days 10/01/2024 Active Social History Tobacco Use: Social History Observation [...] Problem Status W/U Status Risk Notes Problem Arthritis (0526990) Arthritis (M19.90) Active confirmed Problem Insomnia (371650578) Insomnia (G47.00) Active confirmed Problem Neck pain (M54.2) Active confirmed Vital Signs Weight 129.4 lbs 10/01/2024 Height 67 in 10/01/2024 Blood pressure systolic 112 mm Hg 10/02/19 25 Blood pressure diastolic 80 mm Hg 025 BMI 20.26 kg/m2 10/01/2024 Encounters Encounter Location Date Provider Diagnosis [facility] [address] [place] [address] 10/01/2024 Poornima Rachel Wellness examination Z00.00 ; Back pain M54.9 ; Neck pain M54.2 ; Lump R22.9 ; Tendonitis M77.9 ; Insomnia G47.00 ; Arthritis M19.90 ; Current smoker F17.200 and Anxiety and depression F41.8 Assessments Encounter Date Diagnosis (ICD Code) Assessment Notes Treatment Notes Treatment Clinical Notes Section Notes 10/01/2024 Wellness examination (ICD-10 - Z00.00) ROS done exam done 10/01/2024 Back pain (ICD-10 - M54.9) 10/01/2024 Neck pain (ICD-10 - M54.2) 10/01/2024 Lump (ICD-10 - R22.9) 10/01/2024 Tendonitis (ICD-10 - M77.9) 10/01/2024 Insomnia (ICD-10 - G47.00) 10/01/2024 Arthritis (ICD-10 - M19.90) 10/01/2024 Current smoker (ICD-10 - F17.200) 10/01/2024 Anxiety and depression (ICD-10 - F41.8) discussed counseling and medication referral sheet given defers meds at this time Plan Of Treatment Medication Medication Name Sig Start Date Stop Date Notes Varenicline Tartrate (Starte r) 0.5 MG X 11 & 1 MG X 42 as directed Orally as directed for 30 days 06/17/2022 Varenicline Tartrate 1 MG as directed Or ally Twice a day for 30 days 06/17/2022 predniSONE 20 MG 2 tablet Orally Once a day for 5 days 10/01/2024 Diclofenac Sodium 75 MG 1 tablet as need ed Orally Twice a day for 30 days 10/01/2024 traZODone HCl 50 MG 1 tablet at bedtime as needed Orally Once a day for 30 days 10/01/2024 Treatment Notes Assessment Notes Wellness examination ROS done exam done Anxiety and depression discussed counseling and medication referral sheet given defers meds at this time Pending Test Test Name Order Date HEMOGLOBIN A1C (GLYCO) 10/01/2024 INSULIN, TOTAL 10/01/2024 LIPID PANEL (CHOL/TRIG/HDL/LDL) 10/02/19 25 URIC ACID 10/01/2024 MELINDA DIRECT 10/01/2024 ANTISTREPTOLYSIN O AB (ASO) 10/01/2024 RHEUMATOID FACTOR 10/01/2024 THYROID PANEL (T4/TSH/FREE T3) US SOFT TISSUE LIMITED AREA 10/01/2024 CMP (COMP MET RAE) w/eGFR CKD-EPI 2024 CBC WITH DIFF 10/01/2024 Next Appt Details Follow Up: 4 Weeks,prn, Reas on: Progress Notes * Ifeanyi SWANNinDOB:1985 (38 yo M)Acc No.[id number]:10/01/2024 Progress Note Patient: Clovis DOHERTY Provider: Marlo Ramos (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 * ROS: G eneral/Constitutional: Anxiety a dmits. D epression a dmits. F ever d enies. H eadache d enies. W eight loss d enies. O phthalmologic: Discharge d enies. E ye Pain d enies. I tching and redness d enies. E NT: Nasal discharge d enies. N burke congestion d enies.?Sore throat d enies. C ardiovascular: Chest tightness/ heavy pressure d enies. R apid heart rate d enies. S welling of extremities d enies. C hest pain d enies. ? R espiratory: Productive cough d enies. C hest pain d enies. C ough d enies. S hortness of breath d enies. W heezing d enies. ? G astrointestinal: Abdominal pain d enies. C onstipation d enies. D ecreased appetite d enies. D iarrhea d enies. N ausea d enies. V omiting?denies. G enitourinary: Urinary incontinence d enies. P ainful urination d enies. M usculoskeletal: Arthralgias/joint pain l eft index finger. N nelly pain?admits and low back pain for years, burning pain, in neck, some foot pain, paresthesias. M uscle aches d enies. S kin: Rash d enies. S kin lesion(s) s table in size, lumps left forearm and left mid back painful at times, worried about them. ? i nsomnia. * Active Problem List J43.9 Pulmonary emphysema, unspecified emphysema type Modified On:06/16/2022 Status:confirmed I25.2 History of heart att ack Modified On:06/16/2022 Status:confirmed F41.8 Anxiety and depressi on Modified On:06/16/2022 Status:confirmed F17.200 Current smoker Modified On:06/16/2022 Status:confirmed R91.8 Lung mass Modified On:06/17/2022 Status:confirmed Z87.09 H/O pneumothorax Modified On:06/16/2022 Status:confirmed G89.29 Other chronic pain Modified On:06/17/2022 Status:confirmed M54.41 Lumbago with sciatic a, right side Modified On:06/17/2022 Status:confirmed F41.9 Anxiety disorder, un specified Modified On:06/17/2022/U Status:confirmed M54.2 Neck pain Modified On:10/01/2024/U Status:confirmed G47.00 Insomnia Modified On:10/01/2024/U Status:confirmed M19.90 Arthritis Modified On:10/01/2024U Status:confirmed * Medical History: P ulmonary emphysema, unspecified [...] S ister(s): alive. S on(s): alive. D kameron(s): alive. 2 brother(s) , 2 sister(s) . [...] Hg, BMI:20.26Index, Ht-cm: 170.18 cm, Wt-k.7 kg. * Examination: G eneral Examinations: GENERAL APPEARANCE: a lert and oriented, i n no acute distress, tearful . EYES: conjunctiva normal, sclera non-icteric. EARS: e xternal auditory canals are patent. Tympanic membranes are pearly harrell and mobile. LUNGS: d iminished breath sounds in the bases. CARDIO: r egular rate and rhythm, S1, S2 normal. ABDOMEN: s oft, nontender. MUSCULOSKELETAL: d ecreased ROM due to neck and low back pain, left elbow pain and left index finger pain. SKIN: w arm and dry, some swelling left index finger, no redness or warmth. p oor dentition. Assessment: * Assessment: 1. B ack pain - M54.9 (Primary) 2 . W ellness examination - Z00.00 ? 3 . N nelly pain - M54.2 4 . L ump - R22.9 5 . T endonitis - M77.9 6 . I nsomnia - G47.00 7 . A rthritis - M19.90 8 . C urrent smoker - F17.200 9 . A nxiety and depression - F41.8 Plan: * Treatment: 2. W ellness examination L AB: HEMOGLOBIN A1C (GLYCO) L AB: INSULIN, TOTAL L AB: LIPID PANEL (CHOL/TRIG/HDL/LDL) L AB: URIC ACID L AB: MELINDA DIRECT L AB: ANTISTREPTOLYSIN O AB (ASO) L AB: CRP L AB: RHEUMATOID FACTOR L AB: URIC ACID SERUM L AB: THYROID PANEL (T4/TSH/FREE T3) L AB: CMP (COMP MET RAE) w/eGFR CKD-EPI L AB: CBC WITH DIFF Notes: ROS done exam done 3. N nelly pain I maging: XR lumbar spine 2-3V (Performed Date - 10/01/2024) I maging: XR cervical spine 2-3V (Performed Date - 10/01/2024) 4. L ump I maging: US SOFT TISSUE LIMITED AREA 5. T endonitis Start Diclofenac Sodium Tablet Delayed Release, 75 MG, 1 tablet as needed, Orally, Twice a day, 30 days, 60 Tablet, Refills 1. 6. I nsomnia Start traZODone HCl Tablet, 50 MG, 1 tablet at bedtime as needed, Orally, Once a day, 30 days, 30, Refills 5. 7. A rthritis Start predniSONE Tablet, 20 MG, 2 tablet, Orally, Once a day, 5 days, 10 Tablet, Refills 0. ? 8. C urrent smoker Refill Varenicline Tartrate (Starter) Tablet Therapy Pack, 0.5 MG X 11 & 1 MG X 42, as directed, Orally, as directed, 30 days, 30, Refills 0; R efill Varenicline Tartrate Tablet, 1 MG, as directed, Orally, Twice a day, 30 days, 60, Refills 6. 9. A nxiety and depression Notes: discussed counseling and medication referral sheet given defers meds at this time * Follow Up: 4 Weeks,prn * * Electronically signed by Annabelle Ramos , BARBARA, CLINICAL NURSING INTERN.PUTTY TINTER MAKER.[id number] on 10/01/2024 at 11:49 AM EDT Sign off status: Completed Visit Status: C HK (Check Out) true * Provider: Marlo Ramos (TTC), PUTTY TINTER MAKER Date: 10/01/2024 Generated for Poornima mejia/Roderick/Yaredsmitting on: 10/03/2024 09:19 AM EDT History and Physical Notes * HPI (History of Present Illness) Category Sub-Category Detail Notes Category Not es General PET scan saw specialist in [place] low back and neck pain for years left mid back lump smokes marijuana for anxiety and pain left elbow pain inner aspect, hurts to touch, lift with that arm, radiates down left index finger tenderness, knuckle hurts admits anxiety and depression, doesnt know if prozac helped 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 Tympanic membranes are pearly harrell and mobile CARDIO: regular rate and rhy thm, S1, S2 normal LUNGS: diminished breath so unds in the bases ABDOMEN: soft, nontender SKIN: warm and dry, some s welling left index finger, no redness or warmth MUSCULOSKELETAL: decreased ROM due to neck and low back pain, left elbow pain and left index finger pain
--- OUTSIDE RECORDS SUMMARY | 2024-10-01 05:51 | XMS_ITS ---
Author Organization The [facility] [place] in [place] Address [address] [place] [address] Care Team Providers Care Senior Director Of [employer] Name Role Phone Poornima Ramos Primary Care Provider [phone] REASON FOR VISIT [facility] pet scan Encounters Encounter Location Date Provider Diagnosis [facility] [address] [facility] [place] [address] 10/01/2024 Poornima Ramos Plan Of Treatment No Information Progress Notes * Pricila SWANNOB:1985 (38 yo M)Acc No.[id number]:10/01/2024 UNLOCKED PROGRESS NOTE Patient: Elliott DOHERTY :1985 A ge:38 Y S ex:Male Address:[address] [place] [address], [address], [place] [address] * * Date:
--- OUTSIDE RECORDS SUMMARY | 2024-10-02 05:31 | XMS_ITS ---
Author Organization The [facility] in [place] Address [address] [place] [address] Care Team Providers Care Temperer Name Role Phone Poornima Ramos Primary Care Provider [phone] REASON FOR VISIT review labs/imaging- Encounters Encounter Location Date Provider Diagnosis [facility] [address] [facility] [place] [address] 10/02/2024 Poornima Ramos Plan Of Treatment No Information Progress Notes * Pricila SWANNOB:1985 (38 yo M)Acc No.[id number]:10/02/2024 Patient: Elliott DOHERTY :1985 A ge:38 Y S ex:Male Address:[address] [place] [address], [address], [place] [address] * true * Date: Generated for Poornima mejia/Roderick/eTransmitting on: 0 10/03/2024 09:19 AM EDT
--- OUTSIDE RECORDS SUMMARY | 2024-10-03 09:20 | XMS_ITS | Patient Health Record ---
Author Organization [facility] es Address [address] [place] [address] Care Team Providers Care Proof Press Operator Name Role Phone Dinah Silva Primary Care Provider Leoncio Ann Unavailable [phone] Reason For Referral No Information Medications Medication [...] Status W/U Status Risk Notes Problem Lipoma (85008951) Lipoma of othe r specified sites (214.8) Active confirmed Problem Anxiety state (777472216) Anxiety state, unspecified (300.00) Active confirmed Problem Depressive disorder (63628078) Depressive disorder, not elsewhere classified (311) Active confirmed Problem Chronic pain syndrome (030888473) Chronic pain syndrome (338.4) Active confirmed Problem Reflux esophagitis (242703442) Reflux esophagitis (530.11) Active confirmed Problem Lumbago (288058683) Lumbago (724.2) Active confirmed Problem Costochondritis (18272762) Costochondritis (733.6) Active confirmed Problem Insomnia (003327264) Insomnia, unspecified (780.52) Active confirmed Problem Pain,Back-Muscos ke letal (781.99) Active confirmed Problem Sprain of ligament of joint (924054651) Unspecified site of sprain and strain (848.9) [...]
--- OUTSIDE RECORDS SUMMARY | 2024-10-03 09:20 | XMS_ITS | Clinical Summary ---
Author Organization [facility] Address [address] [place] [address] Care Team Providers Care Career Transition Specialist Name Role Phone Unavailable Primary Care Provider [...]
--- NOTE | 2024-10-03 09:22 | US_ITS ---
The [place] [id number] Patient Name: CLOVIS ROBLEDO MRN: [id number] date: 1985 Sex: M Assigned Patient Location: US Current Patient Location: Accession/Order Number: [id number] Exam Date: 10/03/2024 10:26 Report Date: 10/03/2024 10:29 At the request of: CRISELDA NEAL Procedure: US abdomen limited Soft tissue ULTRASOUND: CLINICAL HISTORY: Lump Left Mid Back Area long left lower back for 10 years. Worsening pain. COMPARISON: None TECHNIQUE: Grayscale and color Doppler images in areas of concern were obtained. FINDINGS: In the area of concern involving the left lower back, a hypoechoic area is seen measuring 2.0 x 1.3 x 0.3 cm. US/US abdomen limited IMPRESSION: IN THE AREA OF CONCERN INVOLVING THE LEFT LOWER BACK, HYPOECHOIC AREA SEEN MEASURING 2.0 X 1.3 X 0.3 CM. FINDING COULD RELATE TO A SMALL LIPOMA HOWEVER, THE FINDING IS NONSPECIFIC AND COULD RELATE TO A SEQUELA OF PRIOR INJURY/TRAUMA OR INFECTION. FOLLOW UP ULTRASOUND COULD BE PERFORMED IF CLINICALLY NECESSARY TO CONFIRM STABILITY. Impression dictated by: Cory Quiroga Jr., D.O. 10/03/2024 10:29 AM Dictation Location: [email or web address] Electronically authenticated by: [id number] Y Date: 10/03/2024 10:29
== END 2024-10-03 09:18 | disposition home or self-care (01) ==
LOC: US 09:17
PROVIDERS: PCP Nurse Practitioner Family; Visit Provider Nurse Practitioner Family
DX: R22.2 Localized swelling, mass and lump, trunk (principal)
CPT/HCPCS: 76705

== ENCOUNTER 2024-12-20 14:39 | Outpatient (OUT) | payer OTHER, SELFPAY ==
--- NOTE | 2024-12-20 14:45 | XR_ITS ---
The [address] [address] Patient Name: CLOVIS ROBLEDO MRN: [id number] date: 1985 Sex: M Assigned Patient Location: CARD Current Patient Location: CARD Accession/Order Number: [id number] Exam Date: 12/20/2024 14:50 Report Date: 12/20/2024 15:57 At the request of: CRISELDA NEAL Procedure: XR chest 2V PA AND LATERAL CHEST: CLINICAL HISTORY: Lung Mass COMPARISON: 01/29/2022 FINDINGS: Unremarkable cardiothymic silhouette. Minor emphysematous change. Left lung is clear. Right basilar opacity with blunted appearance right costophrenic angle. Suspected pleural-based mass right lung base appears similar prior chest x-ray. XR/XR chest 2V IMPRESSION: STABLE BLUNTED APPEARANCE RIGHT COSTOPHRENIC ANGLE AND MASS RIGHT LUNG BASE WHEN COMPARED TO PRIOR CHEST X-RAY. OTHERWISE, NO ACUTE CARDIOPULMONARY ABNORMALITY. Impression dictated by: Adam Blancas M.D. 12/20/2024 3:57 PM Dictation Location: [place] [address] Electronically authenticated by: [id number] Y Date: 12/20/2024 15:57
--- NOTE | 2024-12-20 14:46 | XR_ITS ---
The [place] [id number] Patient Name: CLOVIS ROBLEDO MRN: [id number] date: 1985 Sex: M Assigned Patient Location: CARD Current Patient Location: CARD Accession/Order Number: [id number] Exam Date: 12/20/2024 14:50 Report Date: 12/20/2024 15:58 At the request of: CRISELDA NEAL Procedure: XR thoracic spine 2V THORACIC SPINE - - 3 views CLINICAL HISTORY: Back Pain, Lung Mass COMPARISON: None FINDINGS: Thoracic vertebral heights and alignment maintained. Intervertebral spaces appear grossly preserved. XR/XR thoracic spine 2V IMPRESSION: Unremarkable x-rays of the thoracic spine. Impression dictated by: Adam Blancas M.D. 12/20/2024 3:58 PM Dictation Location: [place] [address] Electronically authenticated by: [id number] Y Date: 12/20/2024 15:58
== END 2024-12-20 14:40 | disposition home or self-care (01) ==
LOC: CARD 14:39
PROVIDERS: PCP Nurse Practitioner Family; Visit Provider Nurse Practitioner Family
DX: R00.2 Palpitations (principal); M54.9 Dorsalgia, unspecified; R91.8 Other nonspecific abnormal finding of lung field
CPT/HCPCS: 71046; 72070

== ENCOUNTER 2024-12-24 08:51 | Outpatient (RCR) | payer OTHER, SELFPAY | END 2025-02-26 06:53 | disposition home or self-care (01) | LOC: PT 08:51 | PROVIDERS: PCP Nurse Practitioner Family; Visit Provider Nurse Practitioner Family | DX: M54.9 Dorsalgia, unspecified (principal); M54.2 Cervicalgia | CPT/HCPCS: 97010; 97014; 97110; 97140; 97163 ==

== ENCOUNTER 2025-01-24 09:24 | Outpatient (OUT) | payer OTHER, SELFPAY ==
--- OUTSIDE RECORDS SUMMARY | 2025-01-24 09:28 | XMS_ITS | Clinical Summary ---
Author Organization The [facility] Address [address] [place] [address] Care Team Providers Care Facilities Administrator Name Role Phone Unavailable Primary Care Provider Unavailabl e Social History Tobacco UseTypesPacks/DayYears UsedDateSmoking Tobacco: Never AssessedUT Safety & EnvironmentAnswerDate RecordedFear of Current or Ex-PartnerNot on file 05/05/2023Emotionally AbusedNot on file05/05/2023hysically AbusedNot on file 05/05/2023Sexually AbusedNot on file4Physically or Sexually AbusedNot on file05/05/2023Sex and Gender InformationValueDate RecordedSex Assigned at BirthNot on fileLegal UwiFjhy4809/10/2021 12:44 AM EDTGender IdentityNot on file Sexual OrientationNot on file Last Filed Vital Signs Vital SignReadingTime TakenCommentsBlood Rcaefdlj585/8106 1:18 PM EDT Wjyrm144609/01/2021 1:18 PM FCFFymgrvmpzzl95.6 ??C (97.8 ??F)09/01/2021 1:18 PM EDTRespiratory Rate--Oxygen Pjjqqelxkg465%07/21/2021 2:07 PM EDTInhaled Oxygen Concentration--Bvpjda98.9 kg (140 lb 12.8 oz)09/01/2021 1:18 PM SKTJlnawx504.2 cm (5' 7 )09/01/2021 1:18 PM EDTBody Mass Index22.05009/01/2021 1:18 PM EDT Plan of Treatment Health MaintenanceDue DateLast DoneCommentsDepression Oabcznpny08/03/1998 Varicella Vaccines (1 of 2 - 13+ 2-dose series)1998Hepatitis B Vaccines (1 of 3 - 19+ 3-dose series)2004Pneumococcal Vaccine: Pediatrics (0 to 5 Years) and At-Risk Patients (6 to 64 Years) (1 of 2 - PCV)2004Adult Rmxcgkf0211/15/2007HPV Vaccines (1 - 3-dose SCDM series)2012COVID-19 Vaccine (1 - 2024- season)2024Influenza Vaccine (#1)2024Zoster Vaccines (1 of 2)11/15/2035HIB VaccinesAged OutNo longer eligible based on patient's age to complete this topicIPV VaccinesAged OutNo longer eligible based on patient's age to complete this topicMeningococcal B VaccineAged OutNo longer eligible based on patient's age to complete this topicMeningococcal VaccineAged OutNo longer eligible based on patient's age to complete this topicRotavirus VaccinesAged Out No longer eligible based on patient's age to complete this topic Insurance
--- NOTE | 2025-01-24 09:46 | CT_ITS ---
The [address] [address] Patient Name: CLOVIS ROBLEDO MRN: [id number] date: 1985 Sex: M Assigned Patient Location: CT Current Patient Location: CT Accession/Order Number: [id number] Exam Date: 01/24/2025 10:00 Report Date: 01/24/2025 10:58 At the request of: CRISELDA NEAL Procedure: CT chest w con CT CHEST WITH INTRAVENOUS CONTRAST: CLINICAL HISTORY: Follow-up right basilar mass. Chronic increasing shortness of breath and heart palpitations. COMPARISON: 09/01/2021 and x-ray 12/20/2024 TECHNIQUE: Spiral images were obtained through the chest following intravenous administration of 100 mL of Omnipaque 300. Images were reviewed using both narrow and wide window settings. This CT exam was performed using one or more following dose reduction techniques: Automated exposure control, adjustment of the mA and/or kV according to patient size, or use of iterative reconstruction technique. FINDINGS: The heart is not enlarged. There is no pericardial effusion. No aortic aneurysm or dissection is seen. Similar small AP window, pre and subcarinal and bilateral hilar lymph nodes are present. Small axillary lymph nodes are also again seen. No acute osseous abnormalities are seen. There is obstructive lung disease with airspace lucencies. There are also upper lobe blebs and similar associated apical scarring. Additional scarring is present along the periphery of the right lung. There is a lateral nodular area with rim calcification at the lateral base measuring approximately 2.3 cm in size. Is present on the prior and correlates with the nodular areas seen on chest x-ray. There is no new nodularity. There is pleural calcification at the posterior right base. There is a suspected staple line along the posterior lateral aspect of the right upper lobe. No developing consolidation, pleural effusion, pneumothorax or other nodularity is seen. Limited cuts through the upper abdomen show continued subtle heterogeneous enhancement at the left hepatic lobe. CT/CT chest w con IMPRESSION: OBSTRUCTIVE LUNG DISEASE WITH SCARRING, PREDOMINANTLY ON THE RIGHT WHERE POSTOPERATIVE CHANGES ARE NOTED. SIMILAR CALCIFIED PLEURA AND RIGHT BASILAR NODULAR AREA WITH PERIPHERAL CALCIFICATION. NO OTHER ACUTE FINDINGS. Impression dictated by: Ginger Desai M.D. 01/24/2025 10:58 AM Dictation Location: [id number] Electronically authenticated by: [id number] Y Date: 01/24/2025 10:58
== END 2025-01-24 09:25 | disposition home or self-care (01) ==
LOC: CT 09:24
PROVIDERS: PCP Nurse Practitioner Family; Visit Provider Nurse Practitioner Family
DX: R91.8 Other nonspecific abnormal finding of lung field (principal); J44.9 Chronic obstructive pulmonary disease, unspecified
CPT/HCPCS: 71260; Q9967

== ENCOUNTER 2025-02-06 08:46 | Outpatient (OUT) | payer OTHER, SELFPAY ==
--- OUTSIDE RECORDS SUMMARY | 2015-05-30 08:22 | XMS_ITS | Continuity of Care Document ---
Author Organization [facility] Address [address] [place] [address] Phone Care Team Providers Care Professional Nursing Tutor Name Role Phone Nurse, [facility] Unavailable Unavailable Allergies, Adverse Reactions, Alerts Substance Reaction Status Criticality No Known Allergies Active No Inform ation Medications Medication Instructions Dosage Effective Dates (start - stop) Status Comments sertraline 50 mg tablet take 1 tablet by oral route every day for 1 week then 2 tab PO daily - Active must be seen prior to refill albuterol sulfate HFA 90 mcg/actuation aerosol inhaler inhale 2 puff by inhalation route every 4 - 6 hours as needed 180 MCG - Active hydrocodone 5 mg-acetaminophen 325 mg tablet take 1 tablet by oral route every 6 hours as needed for pain 1.00 tablet - Active Procedures Procedure Date OFFICE/OUTPATIENT VISIT, EST Group Education - Prevention/Early In tervention OFFICE/OUTPATIENT VISIT, EST COPAY Co-Visit/ Screen - Prevention/Early In tervention OFFICE/OUTPATIENT VISIT, NEW Advance Directives Directive Yes / No Effective Date File Name No Information Encounters Encounter Description Practice Location Reason(s) For Visit Diagnoses Date Provider Providers Copied on Encounter [facility], [address], [place], [place], [id number], [place] tel:[phone] [facility] No Information 6 Nurse [facility]. [address] [place], [address], [place]. tel:[phone] OFFICE/OUTPA TIENT VISIT, EST [facility], [address] [address], [place], [place], [address], [place] tel:[phone] [facility] * F/U Depression (chief complaint) Finger pain, rightDepression 5 Bursnall Pily. [address] [place], [address], [place]. tel:[phone] [facility], [address] [address], [place], [place], [address], [place] tel:[phone] [facility] Diagnosis deferred 5 No Information OFFICE/OUTPA TIENT VISIT, EST [facility], [address] [address], [place], [place], [address], [place] tel:[phone] [facility] * F/U Labs (chief complaint) DepressionHistor y of pneumothoraxLeft -sided low back pain without sciatica 5 Bursnall Pily. [address] [place], [address], [place]. tel:[phone] [facility], [address] [address], [place], [place], [address], [place] tel:[phone] [facility] No Information 5 Pharmacy [facility]. [address] [place], [address]. tel:[phone] [facility], [address] [address], [place], [place], [address], [place] tel:[phone] [facility] Diagnosis deferred 5 No Information OFFICE/OUTPA TIENT VISIT, NEW [facility], [address] [address], [place], [place], [address], [place] tel:[phone] [facility] * New pt visit (chief complaint) History of pneumothoraxDepr essionLeft-sided low back pain without sciaticaHistory of substance abuse 5 [address] Pily[address] [place], [address], [place]. tel:[phone] Family History Family Member Type Diagnosis Age At Onset Brother Problem (finding) prostate cancer Payers Payer name Insurance type Covered republican ID Georgia blackman(s) [facility] Medicaid [id number] Social History Type Description Quantity Date Captured Comments Alcohol Use Details Unknown Caffeine Use Details Unknown Tobacco Use Status Smoking Status No Information Sex Male Chief Complaint And Reason For Visit No Information Reason For Referral Reason For Referral No Information Plan Of Treatment Date Type Action Status Goal Tobacco cessation counseling completed Goal Tobacco cessation counseling completed Goal Tobacco cessation counseling completed Referral ordered Referral Ordered: Pulmonology [id number] Ordered: Physical Therapy ordered History Of Present Illness Encounter Date Complaint History Of Prese nt Illness * F/U Depression Patient is not taking meds. He has not called Myesha Suarez to get into counseling. His R pointer finger knuckle has been hurting for 2 months. He reports that he smashes hands all the time at work, and works [employer]. * F/U Labs Patient presents for lab follow up. He reports that he feels that his primary emotion is sadness/hurt and he does have angry outbursts about 2-3 tmes per week. He reports anxiety daily. No dx of bipolar. He is ready to consider counseling but not really sure he needs more than meds. He has good support from girlfriend and no s/h ideation.He has not called pulmonology or PT yet. He needs number again. * New pt visit Patient was in [facility] in 11/25 and had bruised ribs and went to PT and still sore in the L low back. 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 He feels that he has a 'cyst/lump' in L lower back. He does not take anything for this. Had 3 teeth pulled a week ago and had norco for that. He has neothorax and gets periodic holes in lungs (pneumothoraces). He did get a surgery to tack R lung to rib wall. Still has difficulty on this side with pulling. He gets SOB multiple times per day and seldom wheezes. He did have albuterol inhaler after surgery but not now. He did see a lung specialist in [place], twice. He did not get specific treatment thought was short of breath at that point.He is under a great deal of stress as just moved here, girlfriend had baby a month early and baby was in NICU and now is 3 weeks old, has other kids in [place] and lost custody to exwife. He lost his license and cannot get one 2019. He reports past hx of cutting and use of THC and cocaine. He denies current use. He is unsure of counseling and would like to consider meds. He is unsure what to do but reports that it is 'past time for some help.' He reports that he lives for his kids and reports that 'he needs them.' Functional Status Date Functional Assessmen t No Information Instructions Date Instruction Additional Infor adrianna Ordered xray. Advise d ice and rest. We will call with results. Related to Finger pain, right ADvised patient of t he importance of treating with both counseling and meds. Patient is again advised that he should not be taking norco and should not drink alcohol or use any drugs. Related to Depression Patient will call PT to set up a ppt. Related to Left-sided low back pain without sciatica Labs are appropriate to start medication for depression. We will start zoloft and see patient back in 2 weeks. AAdvised that med can increase symptoms in first few weeks and to be vigilant for symptoms. Advised safety plan and discussed with patient and girlfriend; reviewed ER precautions. Advised that med is 1/2 of treatment and patient to see David to start process of getting into counseling. Patient amenable to plan and verbalizes understanding of all instructions. Related to Depression Patient given number again for pulmonology clinic., He will call today. Related to History of pneumothorax Patient is advised t o continue abstinence and that use of THC overtime will increase anxiety and that if future heart palpitations, chest pain he should return to clinic or seek emergent care (cocaine). Patient amenable to plan and verbalizes understanding of all instructions. Related to History of substance abuse Referring back to PT . Slight spasm on L ES and QL and concern that he is compensating for R sided muscular issue from lung surgery. Related to Left-sided low back pain without sciatica David DUTTA also met wi th patient. ADvise counseling and probable SSRI but have advised that these two need to be done together and that we will need to have him come in for close monitoring. Crisis info given. General labs ordered. Patient to return in 1 week for follow up labs and meet with David again. Related to Depression Referring to pulmono logy and will restart albuterol with advisement not to overuse. Related to History of pneumothorax Assessments Type Assessment Date No Information Patient Care Teams Name Effective Dates (start - stop) Status Members No Information
--- OUTSIDE RECORDS SUMMARY | 2020-06-10 07:03 | XMS_ITS | Continuity of Care Document ---
Author Organization [facility] Address [address] [place] [address] Phone Care Team Providers Care Forest Supervisor Name Role Phone Dc Peraza Unavailable Unavailable Allergies, Adverse Reactions, Alerts Substance Reaction Status Criticality No Known Allergies Active No Inform ation Procedures Procedure Date Covid Testing [facility] Prophylaxis Adult Tobacco Counseling Oral Hygiene Instruction PPE Intraoral-periapical 1st Film 0 Lkogfxjcm-zjzgsraaac-fwqq Additional Aug Rgrtvbvad-pbromgcvjj-qilf Additional Aug Comp Oral Eval New/estab Patient [...] Diagnoses Date Provider Providers Copied on Encounter [facility], [address] [place], [place], [id number], [place] tel:[phone] [facility] No Information May- 1 Beverley Du. [address] [place] [address], [id number] , [place]. tel:[phone] [facility], [address] [place] [address], [id number], [place] tel:[phone] COVID ECHD Encounter for screening for other viral disease 0 Beverley Du. [address] [place], [place], [id number] , [place]. tel:[phone] [facility], [address] [place], [place], [id number], [place] tel:[phone] Dental [facility] Prophy (chief complaint) Encounter for screening for dental disorders 0 Green DMD Michelle. [address] [place], [place], [id number] , [place]. tel:[phone] [facility], [address] [place], [place], [id number], [place] tel:[phone] Dental Clinic Dental New (chief complaint) Encounter for screening for dental disorders 0 Peter Kumarry. [address] [place], [place], [id number] , [place]. tel:[phone] [facility], [address] [place], [place], [id number], [place] tel:[phone] Dental Clinic Dental Emergency (chief complaint) Encounter for screening for dental disorders 0 Peter SPIVEY Michelle. [address] [place], [place], [id number] , [place]. tel: [phone] OFFICE/OUTPAT IENT VISIT, EST [facility], [address] [place], [place], [id number], [place] tel:[phone] Rosie [facility] Influenza Vaccine 3-201 1 Beverley Du. [address] [place], [place], [id number] , [place]. tel:[phone] [facility], [address] [place], [place], [id number], [place] tel:[phone] [facility] No Information 2-200 9 Viscdenise Du. [address] [place], [place], [id number] , [place]. tel: [phone] [facility], [address] [place], [place], [id number], [place] tel:[phone] Flu No Information 8 Beverley Du. [address] [place], [place], [id number] , [place]. tel:[phone] Family History Family Member Type Diagnosis Age At Onset Father Problem Alive and well Mother Problem Alive and well Immunizations Vaccine Date Status Comments Flu (split) (3 yrs or older) administered Source: New Immunization Record Payers Payer name Insurance type Covered green party ID Authoriza tion(s) No Information Social History [...] to Encounter for screening for dental disorders) [id number] Ordered: Referrals: Dentistry. Evaluate and treat ordered [...]
--- OUTSIDE RECORDS SUMMARY | 2024-09-27 04:30 | XMS_ITS ---
Author Organization [facility] [place] Address [address] [place] [address] Care Team Providers Care Art Critic Name Role Phone Poornima Ramos Primary Care Provider REASON FOR VISIT want pe Encounters Encounter Location Date Provider Diagnosis [facility] [address] [place] [address] 09/27/2024 Poornima Ramos Plan Of Treatment No Information Progress Notes * SHREE PricilaOB:1985 (39 yo M)Acc No.[id number]:09/27/2024 UNLOCKED PROGRESS NOTE Progress Note Patient: Elliott DOHERTY :?Poornima Ramos ([facility]), CNPDOB:1985 ???Age:38 Y???Sex:MaleDate:09/27/2024Phone:[phone]:[facility] Abdullahi Edmond KENDRICK, VV-[id number] Subjective: * Chief Complaints: * 1 . Want pe. * Medical History: Objective: * Vitals: Assessment: Plan: * Treatment: * * Electronic signature of Poornima Ramos NP, SHEEP FARMER.CAB [email or web address] on 02/06/2025 at 08:48 AM ESTSign off status: PendingVisit Status:?CANCPHONE (Cancelled Phone) * Provider: Marlo Ramos (ARUNA), CAB SUPERVISOR Date: 0 09/27/2024 Generated for Printing/Faxing/eTransmitting on:?02/06/2025 08:48 AM EST
--- OUTSIDE RECORDS SUMMARY | 2024-12-20 04:00 | XMS_ITS ---
Author Organization The [facility] in [place] Address [address] [place] [address] Care Team Providers Care Hand Button Splitter Name Role Phone Poornima Ramos Primary Care Provider REASON FOR VISIT wants referral Encounters Encounter Location Date Provider Diagnosis [facility] [address] [place] [address] 12/20/2024 Poornima Ramos Plan Of Treatment No Information Progress Notes * SHREEIfeanyiKiraOB:1985 (39 yo M)Acc No.[id number]:12/20/2024 UNLOCKED PROGRESS NOTE Progress Note Patient: Elliott DOHERTY :?Poornima MAYS), BENJIDOB:1985 ???Age:39 Y???Sex:MaleDate:12/20/2024Phone:[phone]:Jovana [place] [facility] Subjective: * Chief Complaints: * 1 . Wants referral. * Medical History: Objective: * Vitals: Assessment: Plan: * Treatment: * * Electronic signature of Poornima Ramos NP, [email or web address] on 02/06/2025 at 08:48 AM ESTSign off status: PendingVisit Status:?CANCPHONE (Cancelled Phone) * Provider: Marlo MAYS), BENCH WORKER Date: 1 Generated for Printing/Faxing/eTransmitting on:?02/06/2025 08:48 AM EST
--- OUTSIDE RECORDS SUMMARY | 2025-01-30 04:30 | XMS_ITS ---
Author Organization [facility] in [place] Address [address] [place] [address] Care Team Providers Care Seed Analyst Name Role Phone Poornima Ramos Primary Care Provider Allergies No Known Allergies Reason For Referral Reason palpitations, tachy, april Diagnosis 1 Palpitations (R00.2) Diagnosis 2 Intermittent chest p ain (R07.9) Referral Organization [facility] Referring Provider First Name Poornima Referring Provider Last Name Rachel Referring Provider Speciality [facility] caryn Referred Provider Eitan Das Referred Provider Specialty Cardiology Referral Priority Routine Reason pain assoc with lipo ma (likely per [place]) on left back, also lump left forearm and left hand with pain Diagnosis 1 Lipoma (D17.9) Referral Organization [facility] Referring Provider First Name Poornima Referring Provider Last Name Rachel Referring Provider Speciality [facility] caryn Referred Provider Itz Oconnor Referred Provider Specialty General Surg shaan Referral Priority Routine REASON FOR VISIT Presents to office alone for c/o ongoing painful lump on left arm and back, Also has painful lump between left 1st and second digit, Ongoing knee and hand pain- bilat, Wants to review results of holter monitor Medications Medication SIG (Take, Route, Frequency, Duration) Notes Start Date End Date Status Wellbutrin XL 150 MG 1 tablet in the mor james Orally Once a day; Duration: 30 days 5Active Social History Tobacco Use: Social History Observation Description Date Details (start date - stop date) Current Smoker 03/14/1999 - NA Tobacco Use/Smoking Question Answer Notes Patient is a current smoker When did you start smoking?01/01/2000How often do you smoke cigarettes?every day How many cigarettes a day do you smoke?6-10How soon after you wake up do you smoke your first cigarette?6-30 minutesAre you interested in quitting?Thinking about quittingAdditional Findings: Tobacco UserLight cigarette smoker ((1-9 cigs/day)AUDIT-C (Standard) Question Answer Notes Did you have a drink containing alcohol in the p ast year? No [id number] Vital Signs Blood pressure systolic 94 mm Hg 01/31/20 Blood pressure diastolic 54 mm Hg 025 Height 67 in 01/30/2025 Weight 134.6 lbs 01/30/2025 BMI 21.08 kg/m2 01/30/2025 Procedures Procedure Date Ordered Date Performed Result Body Sit e CARDIO Stress Test - Treadmill Exercise 01/31/20 25 N/A Encounters Encounter Location Date Provider Diagnosis [facility] [address] [place] [address] 01/30/2025 Poornima Ramos Anxiety and depressi on F41.8 ; Neck pain M54.2 ; Lumbago with sciatica, right side M54.41 ; Back pain M54.9 ; Intermittent chest pain R07.9 ; Palpitations R00.2 and Lipoma D17.9 Assessments Encounter Date Diagnosis (ICD Code) Assessment Notes Treatment Notes Treatment Clinical Notes Section Notes 01/30/2025 Anxiety and depression (ICD-10 - F41.8) encouraged counseling referral sheet given 01/30/2025Neck pain (ICD-10 - M54.2)01/30/2025Lumbago with sciatica, right side (ICD-10 - M54.41)5Back pain (ICD-10 - M54.9)01/30/2025Intermittent chest pain (ICD-10 - R07.9)01/30/2025Palpitations (ICD-10 - R00.2)01/30/2025 Lipoma (ICD-10 - D17.9) Plan Of Treatment Medication Medication Name Sig Start Date Stop Date Notes Wellbutrin XL 150 MG 1 tablet in the mor james Orally Once a day; Duration: 30 days 12/11/2024 Treatment Notes Assessment Notes Anxiety and depression encouraged counseling referral sheet given Pending Test Test Name Order Date CARDIO Stress Test - Treadmill Exercise 01/30/2025 MRI CSPINE WO CON 01/30/2025 MRI LSPINE WO CON 01/30/2025 MRI TSPINE WO CON 01/30/2025 Referrals Referral Date Details 01/30/2025 01/30/2025, palpitat ions, tachy, april, Eitan Moukarbel 01/30/2025 01/30/2025, pain ass oc with lipoma (likely per [place]) on left back, also lump left forearm and left hand with pain, Itz Oconnor Next Appt Details Follow Up: 4 Weeks,prn, Reas on: Progress Notes * Ifeanyi SWANNinDOB:1985 (39 yo M)Acc No.[id number]:01/30/2025 Progress Note Patient: Elliott DOHERTY :?Poornima Steph Rachel ([facility]), CNPDOB:1985 ???Age:39 Y???Sex:MaleDate:01/30/2025Phone:[phone]:[address] [facility] [place], [id number] In:09:25 AM ESTCheck Out:10:01 AM EST Subjective: * Chief Complaints: * 1 . Presents to office alone for c/o ongoing painful lump on left arm and back. 2. Also has painful lump between left 1st and second digit. 3. Ongoing knee and hand pain-bilat. 4. Wants to review results of holter monitor. * HPI: ???General:?PT hasnt really helped , just approved for another 8 visits lump left lower back and left forearm- gen surgery MRI whole spine cardiology referral general surgeon ortho hand in future? rheum in future? refill. * ROS: ???General/Constitutional:?Anxiety?admits may be little bit better.?Depression?admits, may be a little bit better.?Fever?denies.?Headache denies.?Weight loss?denies.?Ophthalmologic:?Discharge?denies.?Eye Pain?denies.?Itching and redness?denies.?ENT:?Nasal discharge?denies.?Nasal congestion?denies. Sore throat?denies.?Cardiovascular:?Chest tightness/ heavy pressure?denies.?Rapid heart rate?at times.?Swelling of extremities?denies.?Chest pain?intermittent.?Respiratory:?Productive cough?denies.?Chest pain?denies.?Cough?denies.?Shortness of breath?denies.?Wheezing?denies.?Gastrointestinal:?Abdominal pain?denies.?Constipation?denies.?Decreased appetite?denies.?Diarrhea?denies.?Nausea?denies.?Vomiting denies.?Genitourinary:?Urinary incontinence?denies.?Painful urination?denies.?Musculoskeletal:?Patient complaining of?pain around lumps left back, left forearm and left hand.?Back pain?admits mid thoracic to lower spine.?Neck pain?admits.?Muscle aches?denies.?Skin:?Rash?denies.?Skin lesion(s)?denies.? * Active Problem List J43.9 Pulmonary emphysema, unspecified emphysema type Modified On:06/16/2022 Status:hkxyiayveQ61.2History of heart attack Modified On:06/16/2022 Status:doimwlmhqL09.8Anxiety and depression Modified On:06/16/2022 Status:efryijfqjY66.200Current smoker Modified On:06/16/2022 Status:gxiwdquanZ45.8Lung mass Modified On:06/17/2022 Status:icyrvyuwdG06.09H/O pneumothorax Modified On:06/16/2022 Status:vksqxgrmdX29.29Other chronic pain Modified On:06/17/2022 Status:ukzxatfkrN52.41Lumbago with sciatica, right side Modified On:06/17/2022 Status:awbmjtnkjI35.9Anxiety disorder, unspecified Modified On:06/17/2022 Status:ajynlbxrfT32.2Neck pain Modified On:10/01/2024 Status:fvhicjualY78.00Insomnia Modified On:10/01/2024 Status:lpdcnqhpxR32.90Arthritis Modified On:10/01/2024 Status:confirmed * Medical History: P ulmonary emphysema, unspecified emphysema type, History of heart attack, Anxiety and depression, Current smoker, Lung mass, H/O pneumothorax. * Surgical History: L good Surgery 2007. * Hospitalization/Major Diagno stic Procedure: P heumothorax 2007. * Family History: F ather: alive. M other: alive. B rother(s): alive, testicular cancer, diagnosed with Cancer. S ister(s): alive. S on(s): alive. D ernestolexxer(s): alive. 2 brother(s) , 2 sister(s) . 1 son(s) , 4 daughter(s) - healthy. . * Social History: ???Tobacco Use:?Tobacco Use/Smoking?Patient is a?current smoker ?When did you start smoking??03/14/1999 ?How often do you smoke cigarettes??every day ?How many cigarettes a day do you smoke??6-10 ?How soon after you wake up do you smoke your first cigarette??6-30 minutes ?Are you interested in quitting??Thinking about quitting ?Additional Findings: Tobacco User?Light cigarette smoker ((1-9 cigs/day) ???Drug/Alcohol:?AUDIT-C (Standard)?Did you have a drink containing alcohol in the past year??No ?Points?0 ?Interpretation?Negative * Medications: T aking Wellbutrin XL(buPROPion HCl ER (XL)) 150 MG Tablet Extended Release 24 Hour 1 tablet in the morning Orally Once a day , Medication List reviewed and reconciled with the patient * Allergies: N .K.D.A. Objective: * Vitals: W t:134.6lbs, Ht: 67 in, BP:94/54mm Hg, BMI:21.08Index, Ht-cm: 170.18 cm, Wt-k.05 kg. * Examination: ???General Examinations: ?GENERAL APPEARANCE:?alert and oriented,?in no acute distress.?EYES:?conjunctiva normal, sclera non-icteric.?NOSE:?normal external appearance.?LUNGS:?clear to auscultation bilaterally.?CARDIO:?regular rate and rhythm, S1, S2 normal.?ABDOMEN:?soft, nontender.?BACK:?decreased ROM due to pain.?MUSCULOSKELETAL:?decreased ROM due to neck, back pain. ?SKIN:?warm and dry.? Assessment: * Assessment: 1.?Anxiety and depression - F41.8 (Primary)???2.?Neck pain - M54.2?&#1 60;?3.?Lumbago with sciatica, right side - M54.41???4.?Back pain - M54 .9???5.?Intermittent chest pain - R07.9???6.?Palpitations -R00.2???7.?Lipoma - D17.9??? Plan: * Treatment: Refill Wellbutrin XL Tablet Extended Release 24 Hour, 150 MG, 1 tablet in the morning, Orally, Oncea day, 30 days, 30 Tablet, Refills 11.?? Notes: encouraged counseling referral sheet given??2.?Neck pain?Imaging: MRI CSPINE WO CON3.?Lumbago with sciatica, right side?Imaging: MRI LSPINE WO CON4.?Back pain?Imaging: MRI TSPINE WO CON5.?Intermittent chest pain?Procedure: CARDIO Stress Test - Treadmill Exercise? Referral To:Eitan Das??Cardiology ?Reason:palpitations, tachy, april 6.?Palpitations? Referral To:Eitan Das??Cardiology ?Reason:palpitations, tachy, april 7.?Lipoma? Referral To:Itz Oconnor??General Surgery ?Reason:pain assoc with lipoma (likely per [place]) on left back, also lump left forearm and left hand with pain * Preventive Medicine: ??Screenings/Counseling:?TOBACCO ACTION PLAN?Patient counselled on the dangers of tobacco use and urged to quit.? 01/30/2025 . * Follow Up: 4 Weeks,prn * * Electronically signed by Poornima Ramos , BARBARA, GLASS CLEANING MACHINE TENDER.SIGNAL WORKER HELPER.[id number] on 02/04/2025 at 08:36 AM ESTSign off status: CompletedVisit Status:?CHK (Check Out) true * Provider: Marlo Ramos ([facility]), SIGNAL WORKER HELPER Date: 04/01/2024 Generated for Printing/Faxing/eTransmitting on:?02/06/2025 08:48 AM EST History and Physical Notes * HPI (History of Present Illness) CategorySub-CategoryDetailNotesCategory NotesGeneral PT hasnt really helped , just approved for another 8 visits lump left lower back and left forearm- gen surgery MRI whole spine cardiology referral general surgeon ortho hand in future? rheum in future? refill Examination CategorySub-CategoryDetailNotesCategory NotesGeneral ExaminationsGENERAL APPEARANCE:alert and oriented, in no acute distressEYES:conjunctiva normal, sclera non-ictericEARS:NOSE:normal external appearanceTHROAT:CARDIO:regular rate and rhythm, S1, S2 normalLUNGS:clear to auscultation bilaterallyABDOMEN:soft, nontenderSKIN:warm and dryBACK:decreased ROM due to painMUSCULOSKELETAL: decreased ROM due to neck, back painLYMPH NODES: Consultation Request Notes Referral Date Referring Provider Referred Provider Not es 01/30/2025 Poornima Ramos George palpitat ions, tachy, brady 01/30/2025 Poornima Ramos Michael pain assoc w ith lipoma (likely per [place]) on left back, also lump left forearm and left hand with pain
--- OUTSIDE RECORDS SUMMARY | 2025-01-30 06:04 | XMS_ITS ---
Author Organization [facility] in [place] Address [address] [place] [address] Care Team Providers Care Glass Toughening Operator Name Role Phone Poornima Ramos Primary Care Provider [phone] Encounters Encounter Location Date Provider Diagnosis [facility] [address] [place] [address] 01/30/2025 Poornima Ramos Abnormal Holter monitor finding R94.31 and Lipoma D17.9 Assessments Encounter Date Diagnosis (ICD Code) Assessment Notes Treatment Notes Treatment Clinical Notes Section Notes 01/30/2025 Abnormal Holter monitor finding (ICD-10 - R94.31) 01/30/2025Lipoma (ICD-10 - D17.9) Plan Of Treatment No Information Progress Notes * Pricila SWANNOB:1985 (39 yo M)Acc No.[id number]:01/30/2025 Patient:?Elliott SWANN :1985???Age:39 Y???Sex:MalePhone:[phone] Address:[address] [place] [id number] Subjective: * Chief Complaints: * * Medical History: * Surgical History: * Hospitalization/Major Diagno stic Procedure: * Medications: Objective: * Vitals: * Physical Examination: ??? Assessment: * Assessment: 1.?Abnormal Holter monitor finding - R94.31 (Primary)???2.?Lipoma - D17.9&# 160;?? Plan: * Treatment: * Procedure Codes: * true * Date:?Generated for Printing/Faxing/eTransmitting on:?02/06/2025 08:48 AM EST
--- OUTSIDE RECORDS SUMMARY | 2025-02-06 08:48 | XMS_ITS | Patient Health Record ---
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 Name Role Phone Poornima Ramos Primary Care Provider [phone] Allergies No Known Allergies Results Component Value Reference Range Notes GLYCOHEMOGLOBIN A1C Reviewed date:10/02/2024 08:23:45 AM Interpretation: Performing Lab: Notes/Report: [facility] , Glycohemoglobin A1C 5.0 4.5-6.2 % ADA RECOMMENDED LIMIT 4.0 - 6.0 ADA THERAPEUTIC TARGET < 7.0 ACTION SUGGESTED > 7.0 Estimated Average Glucose 97 Performing Lab:see noteML - [facility] LBUS abdomen limited Reviewed date:10/04/2024 08:50:43 AM Interpretation: Performing Lab: Notes/Report: Source Facility: [facility]-[address] [place] [address] [place] [address] Ultrasound Report Signed Patient: CLOVIS SWANN MR#: [id number] : 1985 Acct:[id number] Age/Sex: 38 / M ADM Date: 10/03/24 Loc: US Attending Dr: POORNIMA RAMOS Ordering Physician: POORNIMA RAMOS Date of Service: 10/03/24 Procedure(s): US abdomen limited Accession Number(s): [id number] cc: POORNIMA RAMOS [place] [address] Patient Name: CLOVIS SWANN MRN: [id number] date: 1985 Sex: M Assigned Patient Location: US Current Patient Location: US Accession/Order Number: [id number] Exam Date: 10/03/2024 10:26 Report Date: 10/03/2024 10:29 At the request of: POORNIMA RAMOS Procedure: US abdomen limited Soft tissue ULTRASOUND: CLINICAL HISTORY: Lump Left Mid Back Area long left lower back for 10 years. Worsening pain. COMPARISON: None TECHNIQUE: Grayscale and color Doppler images in areas of concern were obtained. FINDINGS: In the area of concern involving the left lower back, a hypoechoic area is seen measuring 2.0 x 1.3 x 0.3 cm. US/US abdomen limited IMPRESSION: IN THE AREA OF CONCERN INVOLVING THE LEFT LOWER BACK, HYPOECHOIC AREA SEEN MEASURING 2.0 X 1.3 X 0.3 CM. FINDING COULD RELATE TO A SMALL LIPOMA HOWEVER, THE FINDING IS NONSPECIFIC AND COULD RELATE TO A SEQUELA OF PRIOR INJURY/TRAUMA OR INFECTION. FOLLOW UP ULTRASOUND COULD BE PERFORMED IF CLINICALLY NECESSARY TO CONFIRM STABILITY. Impression dictated by: Cory Quiroga Jr., D.O. 10/03/2024 10:29 AM Dictation Location: [place] [address] Electronically authenticated by: [id number] Y Date: 10/03/2024 10:29 Dictated By: Cory Quiroga M.D. Signed By: 10/03/24 1031 DD/ 1029 TD/TT: Canvass Manager:CBC AUTO DIFF Reviewed date:10/02/2024 08:23:45 AM Interpretation: Performing Lab: Notes/Report: [facility] ,White Blood Count7.04.0-11.0 10 3/uLRed Blood Count4.534.70-6.10 10 6/uL Doraeucxhi91.314.0-18.0 g/dTBibsvstwfe59.142.0-54.0 %Mean Corpuscular Mhcbui97.4 80.0-94.0 fLMean Corpuscular Qcffhbmiyh13.825.9-34.0 pgMean Corpuscular HGB Conc 34.729.9-35.2 g/dLRed Cell Distribution Width11.911.0-15.0 %Platelet Jqusv497 150-450 10 3/uLMean Platelet Bxxhkr69.39.5-13.5 fLNeutrophils Percent Auto63.4 43.0-75.0 %Lymphocytes Percent Auto22.420.5-60.0 %Monocytes Percent Auto11.61.7- 12.0 %Eosinophils Percent Auto2.00.9-7.0 %Basophils Percent Auto0.30.2-2.0 % Immature Granulocytes Pct Auto0.30.0-0.5 %Neutrophils Absolute Auto4.51.4-6.5 10 3/uLLymphocytes Absolute Auto1.61.2-3.8 10 3/uLMonocytes Absolute Auto0.80.3-0.8 10 3/uLEosinophils Absolute Auto0.10.0-0.7 10 3/uLBasophils Absolute Auto0.00.0- 0.1 10 3/uLImmature Granulocytes Abs Auto0.020.00-0.03 10 3/uLPerforming Lab:see noteML - [facility] LBCT CHEST W CON Reviewed date:01/29/2025 01:44:58 PM Interpretation: Performing Lab: Notes/Report: Source Facility: [place] [address] CT Scan Report Signed Patient: CLOVIS SWANN MR#: [id number] : 1985 Acct:[id number] Age/Sex: 39 / M ADM Date: 01/24/25 Loc: CT Attending Dr: POORNIMA RAMOS Ordering Physician: POORNIMA RAMOS Date of Service: 01/24/25 Procedure(s): CT chest w con Accession Number(s): [id number] cc: POORNIMA RAMOS [place] [id number] Patient Name: CLOVIS SWANN MRN: [id number] date: 1985 Sex: M Assigned Patient Location: CT Current Patient Location: CT Accession/Order Number: [id number] Exam Date: 01/24/2025 10:00 Report Date: 01/24/2025 10:58 At the request of: POORNIMA RAMOS Procedure: CT chest w con CT CHEST WITH INTRAVENOUS CONTRAST: CLINICAL HISTORY: Follow-up right basilar mass. Chronic increasing shortness of breath and heart palpitations. COMPARISON: 09/01/2021 and x-ray 12/20/2024 TECHNIQUE: Spiral images were obtained through the chest following intravenous administration of 100 mL of Omnipaque 300. Images were reviewed using both narrow and wide window settings. This CT exam was performed using one or more following dose reduction techniques: Automated exposure control, adjustment of the mA and/or kV according to patient size, or use of iterative reconstruction technique. FINDINGS: The heart is not enlarged. There is no pericardial effusion. No aortic aneurysm or dissection is seen. Similar small AP window, pre and subcarinal and bilateral hilar lymph nodes are present. Small axillary lymph nodes are also again seen. No acute osseous abnormalities are seen. There is obstructive lung disease with airspace lucencies. There are also upper lobe blebs and similar associated apical scarring. Additional scarring is present along the periphery of the right lung. There is a lateral nodular area with rim calcification at the lateral base measuring approximately 2.3 cm in size. Is present on the prior and correlates with the nodular areas seen on chest x-ray. There is no new nodularity. There is pleural calcification at the posterior right base. There is a suspected staple line along the posterior lateral aspect of the right upper lobe. No developing consolidation, pleural effusion, pneumothorax or other nodularity is seen. Limited cuts through the upper abdomen show continued subtle heterogeneous enhancement at the left hepatic lobe. CT/CT chest w con IMPRESSION: OBSTRUCTIVE LUNG DISEASE WITH SCARRING, PREDOMINANTLY ON THE RIGHT WHERE POSTOPERATIVE CHANGES ARE NOTED. SIMILAR CALCIFIED PLEURA AND RIGHT BASILAR NODULAR AREA WITH PERIPHERAL CALCIFICATION. NO OTHER ACUTE FINDINGS. Impression dictated by: Ginger Desai M.D. 01/24/2025 10:58 AM Dictation Location: [place] [address] Electronically authenticated by: [id number] Y Date: 01/24/2025 10:58 Dictated By: Ginger Desai M.D. Signed By: 01/24/25 1101 DD/ 1058 TD/TT: Canvass Manager:MELISSA thoracic spine 2V Reviewed date:12/21/2024 12:10:03 PM Interpretation: Performing Lab: Notes/Report: Source Facility: [facility]-[address], [place] [address] XRay Report Signed Patient: CLOVIS SWANN MR#: [id number] : 1985 Acct:[id number] Age/Sex: 39 / M ADM Date: 12/20/24 Loc: CARD Attending Dr: POORNIMA RAMOS Ordering Physician: POORNIMA RAMOS Date of Service: 12/20/24 Procedure(s): XR thoracic spine 2V Accession Number(s): [id number] cc: POORNIMA RAMOS [place] [address] Patient Name: CLOVIS SWANN MRN: [id number] date: 1985 Sex: M Assigned Patient Location: CARD Current Patient Location: CARD Accession/Order Number: [id number] Exam Date: 12/20/2024 14:50 Report Date: 12/20/2024 15:58 At the request of: POORNIMA RAMOS Procedure: XR thoracic spine 2V THORACIC SPINE - - 3 views CLINICAL HISTORY: Back Pain, Lung Mass COMPARISON: None FINDINGS: Thoracic vertebral heights and alignment maintained. Intervertebral spaces appear grossly preserved. XR/XR thoracic spine 2V IMPRESSION: Unremarkable x-rays of the thoracic spine. Impression dictated by: Adam Blancas M.D. 12/20/2024 3:58 PM Dictation Location: [place] [address] Electronically authenticated by: [id number] Y Date: 12/20/2024 15:58 Dictated By: Adam Blancas M.D. Signed By: 12/20/24 1601 DD/ 1558 TD/TT: Canvass Manager:XR chest 2V Reviewed date:12/21/2024 12:10:03 PM Interpretation: Performing Lab: Notes/Report: Source Facility: [place] [address] XRay Report Signed Patient: CLOVIS SWANN MR#: [id number] : 1985 Acct:[id number] Age/Sex: 39 / M ADM Date: 12/20/24 Loc: CARD Attending Dr: POORNIMA RAMOS Ordering Physician: POORNIMA RAMOS Date of Service: 12/20/24 Procedure(s): XR chest 2V Accession Number(s): [id number] cc: POORNIMA RAMOS [place] [address] Patient Name: CLOVIS SWANN MRN: [id number] date: 1985 Sex: M Assigned Patient Location: CARD Current Patient Location: CARD Accession/Order Number: [id number] Exam Date: 12/20/2024 14:50 Report Date: 12/20/2024 15:57 At the request of: POORNIMA RAMOS Procedure: XR chest 2V PA AND LATERAL CHEST: CLINICAL HISTORY: Lung Mass COMPARISON: 01/29/2022 FINDINGS: Unremarkable cardiothymic silhouette. Minor emphysematous change. Left lung is clear. Right basilar opacity with blunted appearance right costophrenic angle. Suspected pleural-based mass right lung base appears similar prior chest x-ray. XR/XR chest 2V IMPRESSION: STABLE BLUNTED APPEARANCE RIGHT COSTOPHRENIC ANGLE AND MASS RIGHT LUNG BASE WHEN COMPARED TO PRIOR CHEST X-RAY. OTHERWISE, NO ACUTE CARDIOPULMONARY ABNORMALITY. Impression dictated by: Adam Blancas M.D. 12/20/2024 3:57 PM Dictation Location: [place] [address] Electronically authenticated by: [id number] Y Date: 12/20/2024 15:57 Dictated By: Adam Blancas M.D. Signed By: 12/20/24 1600 DD/ 1557 TD/TT: Canvass Manager:XR cervical spine 2-3V Reviewed date:10/02/2024 08:23:45 AM Interpretation: Performing Lab: Notes/Report: Source Facility: [place] [address] XRay Report Signed Patient: CLOVIS SWANN MR#: [id number] : 1985 Acct:[id number] Age/Sex: 38 / M ADM Date: 10/01/24 Loc: LAB Attending Dr: POORNIMA RAMOS Ordering Physician: POORNIMA RAMOS Date of Service: 10/01/24 Procedure(s): XR cervical spine 2-3V Accession Number(s): [id number] cc: POORNIMA RAMOS [place] [address] Patient Name: CLOVIS SWANN MRN: [id number] date: 1985 Sex: M Assigned Patient Location: LAB Current Patient Location: LAB Accession/Order Number: [id number] Exam Date: 10/01/2024 10:50 Report Date: 10/01/2024 [...] Jr., D.O. 10/01/2024 10:51 AM Dictation Location: [place] [address] Electronically authenticated by: [id number] Y Date: 10/01/2024 10:51 Dictated By: oCry Quiroga M.D. Signed By: 10/01/24 1053 DD/ 1051 TD/TT: Canvass Manager:XR lumbar spine 2-3V Reviewed date:10/02/2024 08:23:45 AM Interpretation: Performing Lab: Notes/Report: Source Facility: [place] [address] XRay Report Signed Patient: CLOVIS SWANN MR#: [id number] : 1985 Acct:[id number] Age/Sex: 38 / M ADM Date: 10/01/24 Loc: LAB Attending Dr: POORNIMA RAMOS Ordering Physician: POORNIMA RAMOS Date of Service: 10/01/24 Procedure(s): XR lumbar spine 2-3V Accession Number(s): [id number] cc: POORNIMA RAOMS [place] [id number] Patient Name: CLOVIS SWANN MRN: [id number] date: 1985 Sex: M Assigned Patient Location: LAB Current Patient Location: LAB Accession/Order Number: [id number] Exam Date: 10/01/2024 10:51 Report Date: 10/01/2024 [...] Jr., D.O. 10/01/2024 10:51 AM Dictation Location: [place] [address] Electronically authenticated by: [id number] Y Date: 10/01/2024 10:51 Dictated By: Cory Quiroga M.D. Signed By: 10/01/24 1054 DD/ 1051 TD/TT: Canvass Manager:URIC ACID SERUM Reviewed date:10/02/2024 08:23:45 AM Interpretation: Performing Lab: Notes/Report: [facility] ,Uric Acid3.53.5-7.2 mg/dLPerforming Lab:see noteML - [facility] LB RHEUMATOID FACTOR Reviewed date:10/04/2024 08:51:19 AM Interpretation: Performing Lab: Notes/Report: [facility] ,Rheumatoid Factor (RF)<10.0<14.0 IU/mLPerforming Lab:see noteLC - [facility] LBCRP Reviewed date:10/02/2024 08:23:45 AM Interpretation: Performing Lab: Notes/Report: [facility] ,C Reactive Protein2.65<=0.50 mg/dLPerforming Lab:see noteML - [facility] LBTSH Reviewed date:10/02/2024 08:23:45 AM Interpretation: Performing Lab: Notes/Report: [facility] ,Thyroid Stimulating Hormone1.9250.358-3.740 uIU/mLPerforming Lab:see noteML - [facility] LBT4 Reviewed date:10/02/2024 08:23:45 AM Interpretation: Performing Lab: Notes/Report: [facility] ,T4 Thyroxine8.904.50-12.10 ug/dLPerforming Lab:see noteML - [facility] LBPROF 14(COMP METB) Reviewed date:10/02/2024 08:23:45 AM Interpretation: Performing Lab: Notes/Report: [facility] ,Crkefd518307-995 mmol/LPotassium3.73.5-5.1 mmol/FYmocvnug78545-074 mmol/LCarbon Bkvrfcj66.921.0-32.0 mmol/LAnion Gap13.4Kwwqabs4056-492 mg/dLBlood Urea Nitrogen 18.07.0-18.0 mg/dLCreatinine1.140.70-1.30 mg/dLEstimated GFR ( Rachel>60 >=60 mL/min/1.73m 2Estimated GFR (Non- Britni>60>=60 mL/min/1.73m 2BUN Creatinine Ratio15.7Smikqcj9.18.5-10.1 mg/dLBilirubin Total0.40.2-1.0 mg/dL Aspartate Amino Muukawmkrli6263-78 U/LAlanine Yhrsgrmylcixrlew2721-07 U/L Alkaline Ygybpifgfzd9287-991 U/LTotal Protein7.66.4-8.2 g/dLAlbumin Level3.93.4- 5.0 g/dLGlobulin3.7Albumin Globulin Ratio1.1Performing Lab:see noteML - [facility] LBLIPID PROFILE Reviewed date:10/02/2024 08:23:45 AM Interpretation: Performing Lab: Notes/Report: [facility] ,Tzsgtfrnmcvpt65<=150 mg/uGVlgtvybemwe998<=200 mg/dLHDL Iwazktakohn2186-08 mg/dL > or =60 mg/dl - LOW CARDIOVASCULAR RISK <40 mg/dl - HIGH CARDIOVASCULAR RISK LDL Cholesterol Hyfnagjnfr14.0 <100 mg/dl OPTIMAL 100-129 mg/dl NEAR OR ABOVE OPTIMAL 130-159 mg/dl BORDERLINE HIGH 160-189 mg/dl HIGH >190 mg/dl VERY HIGH VLDL ZLVDURYJJQK90.0Chol HDL Ratio3.0 3.3 - 4.4 LOW RISK 4.4 - 7.1 AVERAGE RISK 7.1 - 11.0 MODERATE RISK >11.0 HIGH RISK Performing Lab:see philip - [facility] LBFREE T3 Reviewed date:10/02/2024 08:23:45 AM Interpretation: Performing Lab: Notes/Report: [facility] ,Free T32.452.18-3.98 pg/mLPerforming Lab:[facility]ip[facility] Antistreptolysin O Ab Reviewed date:10/04/2024 08:51:19 AM Interpretation: Performing Lab: Notes/Report: [place] ,Antistreptolysin O Ab59.80.0-200.0 IU/mL Performed at: [address] [id number] Rn Emergency: Vimal Holm PhD, Phone: [employer] Performing Lab:see philipBournewood Hospitaljb GARCIAANA by IFA Reviewed date:10/04/2024 08:51:19 AM Interpretation: Performing Lab: Notes/Report: [place] ,Antinuclear Antibodies, IFANegative. Negative <1:80 Borderline 1:80 Positive >1:80 ICAP nomenclature: AC-0 For more information about Hep-2 cell patterns use ANApatterns.org, the official website for the International Consensus on Antinuclear Antibody (MELINDA) Patterns (ICAP). Performed at: [address] [id number] Rn Emergency: Vimal Holm PhD, Phone: [employer] Performing Lab:see philipSt[facility] LBINSULIN Reviewed date:10/02/2024 08:23:45 AM Interpretation: Performing Lab: Notes/Report: [place] ,Insulin7.02.6-24.9 uIU/mL Performed at: [address] [id number] Rn Emergency: Vimal Holm PhD, Phone: [employer] Performing Lab:see noteLC - [facility] LB Reason For Referral Diagnosis 1 Neck pain (M54.2) Diagnosis 2 Low back pain at [facility] (M54.50) Referral Organization [facility] Referring Provider First Name Poornima Referring Provider Last Name Rachel Referring Provider [facility] icine Referred Provider [facility], Physical Therap y Referred Provider Specialty Physical The rapist Referral Priority Routine Reason chronic neck and sarah k pain Diagnosis 1 Back pain (M54.9) Diagnosis 2 Neck pain (M54.2) Referral Organization [facility] Referring Provider First Name Poornima Referring Provider Last Name Rachel Referring Provider [facility] icine Referred Provider TB, Physical Therap y Referred Provider Specialty Physical The rapist Referral Priority Routine Reason palpitations, tachy, april Diagnosis 1 Palpitations (R00.2) Diagnosis 2 Intermittent chest p ain (R07.9) Referral Organization [facility] Referring Provider First Name Poornima Referring Provider Last Name Rachel [facility]erred Provider Eitan Das Referred Provider Specialty Cardiology Referral Priority Routine Reason pain assoc with lipo ma (likely per US) on left back, also lump left forearm and left hand with pain Diagnosis 1 Lipoma (D17.9) Referral Organization [facility] Referring Provider First Name Poornima Referring Provider Last Name Rachel Referring [facility] Referred Provider Itz Oconnor Referred Provider Specialty General Surg shaan Referral Priority Routine Medications Medication SIG (Take, Route, Frequency, Duration) [...] a current smoker When did you start smoking?03/14/1999How often do you smoke cigarettes?every day How many cigarettes a day do you smoke?6-10How soon after you wake up do you smoke your first cigarette?6-30 minutesAre you interested in quitting?Thinking about quittingAdditional Findings: Tobacco UserLight cigarette smoker ((1-9 cigs/day)Alcohol Screen (Audit-C) Question Answer Notes Did you have a drink containing alcohol in the p ast year? Yes How often did you have 6 or more drinks on one occasion in the past year?Never (0 point)How many drinks did you have on a typical day when you were drinking in the past year?1 or 2 drinks (0 point)How often did you have a drink containing alcohol in the past year?Less than monthly (1 point)Fwlvdj6Ckofurrwafvylm NegativeAUDIT-C (Standard) Question Answer Notes Did you have a drink containing alcohol in the p ast year? No Wkvfqu7MtvrzojqoovrjoJcgrxwca Problems Problem Type SNOMED Code ICD Code Onset Dates Problem Status W/U Status Risk Notes Problem Anxiety disorder (252957225) Anxiety diso rder, unspecified (F41.9) ActiveconfirmedProblemChronic pain (71155464)Other chronic pain (G89.29)Active confirmedProblemSciatica (99711618)Lumbago with sciatica, right side (M54.41) ActiveconfirmedProblemNeck pain (46365743)Neck pain (M54.2)Activeconfirmed ProblemArthritis (4327673)Arthritis (M19.90)ActiveconfirmedProblemInsomnia (462688253)Insomnia (G47.00)ActiveconfirmedProblemPulmonary emphysema (39150305) Pulmonary emphysema, unspecified emphysema type (J43.9)ActiveconfirmedProblem Current smoker (30897867)Current smoker (F17.200)ActiveconfirmedProblemLung mass (093864980)Lung mass (R91.8)ActiveconfirmedProblemHistory of respiratory disease (899399333)H/O pneumothorax (Z87.09)ActiveconfirmedProblemHistory of non-ST segment elevation myocardial infarction (705479680)History of heart attack (I25.2)ActiveconfirmedProblemMixed anxiety and depressive disorder (807218674) Anxiety and depression (F41.8)Activeconfirmed Vital Signs Blood pressure diastolic 54 mm Hg 01/30/2025 Wvwewm73 in01/30/2025lood pressure dsjoipdz85 mm Hg01/30/20256695Esdasd636.6 lbs 01/30/2025BMI21.08 kg/m201/30/2025 Procedures Procedure Date Ordered Date Performed Result Body Sit e CARDIO Stress Test - Treadmill Exercise 01/31/20 25 N/AHolter Monitor - 3 days up to 14 days12/11/2024N/A Encounters Encounter Location Date Provider Diagnosis [place] [address] [place] [address] 10/01/2024 Poornima Ramos [facility] [place] [address] [facility] [place] [address]/Pamela CramerNeck pain M54.2 and Low back pain at multiple sites M54.50[facility] [place] [address]/[facility] [address] [place] [address]/12/2024Pamela CramerLung mass R91.8[place] [address] [place] [address] 01/15/2025Pamela [facility] [place] [address]/07/2024[facility] [address] [place] [address]/02/2025[facility] [place] [address]/ Poornima [facility] [place] [address]/Pamela CramerAbnormal Holter monitor finding R94.31 and Lipoma D17.9B[facility] [place] [address]/Pamela CramerAnxiety and depression F41.8 ; Neck pain M54.2 ; Lumbago with sciatica, right side M54.41 ; Back pain M54.9 ; Intermittent chest pain R07.9 ; Palpitations R00.2 and Lipoma D17.9B[facility] [place] [address]/30/2025Pamela Rachel Anxiety and depression F41.8 ; Palpitations R00.2 ; Back pain M54.9 ; Neck pain M54.2 and Lung massR91.8BSt. [facility] Hospital[address] [place] [address]/21/2025Pamela CramerWellness examination Z00.00 ; Back pain M54.9 ; Neck pain M54.2 ; Lump R22.9 ; Tendonitis M77.9 ; Insomnia G47.00 ; Arthritis M19.90 ; Current smoker F17.200 and Anxiety and depression F41.[address] [address] 10/08/2024Pamela CramerArthritis M19.90 Assessments Encounter Date Diagnosis (ICD Code) Assessment Notes Treatment Notes Treatment Clinical Notes Section Notes 10/01/2024 Wellness examination (ICD-10 - Z 00.00) ROS done exam done10/01/2024ack pain (ICD-10 - M54.9)10/08/2024rthritis (ICD- 10 - M19.90) diclofenac helps some steroid burst did help hands discussed elevated CRP, possible rheum referral when gets insurance 12/11/2024nxiety and depression (ICD-10 - F41.8)12/11/2024Palpitations (ICD-10 - R00.2)01/30/2025nxiety and depression (ICD-10 - F41.8) encouraged counseling referral sheet given 01/30/2025Neck pain (ICD-10 - M54.2)10/03/2024Neck pain (ICD-10 - M54.2) 10/03/2024Low back pain at multiple sites (ICD-10 - M54.50)12/21/2024Lung mass (ICD-10 - R91.8)01/30/2025bnormal Holter monitor finding (ICD-10 - R94.31) 01/30/2025Lipoma (ICD-10 - D17.9)01/30/2025Lumbago with sciatica, right side (ICD-10 - M54.41)12/11/2024ack pain (ICD-10 - M54.9)10/01/2024Neck pain (ICD-10 - M54.2)10/01/2024Lump (ICD-10 - R22.9)12/11/2024Neck pain (ICD-10 - M54.2) 01/30/2025ack pain (ICD-10 - M54.9)01/30/2025Intermittent chest pain (ICD-10 - R07.9)12/11/2024Lung mass (ICD-10 - R91.8)10/01/2024Tendonitis (ICD-10 - M77.9) 10/01/2024Insomnia (ICD-10 - G47.00)01/30/2025Palpitations (ICD-10 - R00.2) 01/30/2025Lipoma (ICD-10 - D17.9)10/01/2024rthritis (ICD-10 - M19.90)10/01/2024 Current smoker (ICD-10 - F17.200)10/01/2024nxiety and depression (ICD-10 - F41.8) discussed counseling and medication referral sheet given defers meds at this time Plan Of Treatment Pending Test Test Name Order Date CMP (COMPLETE METABOLIC PANEL) 3 HEMOGLOBIN A1C (GLYCO) 10/01/2024 HEMOGLOBIN A1C (GLYCO) 06/17/2022 INSULIN, TOTAL 10/01/2024 INSULIN, TOTAL 06/17/2022 LIPID PANEL (CHOL/TRIG/HDL/LDL) 10/02/19 25 LIPID PANEL (CHOL/TRIG/HDL/LDL) 06/18/19 23 CBC WITH DIFF (EXP 01/2025) 06/17/2022 URIC ACID 06/17/2022 URIC ACID 10/01/2024 XR Lumbar Spine (2-3 views) * 06/17/2022 CT Chest w/contrast * 06/17/2022 CARDIO Stress Test - Treadmill Exercise 01/30/2025 MELINDA DIRECT 10/01/2024 ANTISTREPTOLYSIN O AB (ASO) 10/01/2024 MRI CSPINE WO CON 01/30/2025 MRI LSPINE WO CON 01/30/2025 MRI TSPINE WO CON 01/30/2025 THYROID PANEL (T4/TSH/FREE T3) Holter Monitor - 3 days up to 14 days SOFT TISSUE LIMITED AREA 10/01/2024 CMP (COMP MET RAE) w/eGFR CKD-EPI 2024 CBC WITH DIFF 10/01/2024 Insurance Providers Payer Name Payer Address Payer Phone Subscriber Number Group Number Insured Name Patient Relationship to Insured Coverage Start Date Coverage End Date [employer] [place] [employer] [address] [facility] [place] [address] [id number] Jayden Swannelf - patient is the insured Medical (General) History Medical History History ICD Code Pulmonary emphysema, unspecified emphyse ma type J43.9 History of heart attack I25.2 Anxiety and depression F41.8 Current smoker F17.200 Lung mass R91.8 H/O pneumothorax Z87.09 Surgical History Surgery Date(Month/Year) Lung Surgery 2007 Hospitalization History Reason Date(Month/Year) Pheumothorax 2007
--- OUTSIDE RECORDS SUMMARY | 2025-02-06 08:49 | XMS_ITS | Clinical Summary ---
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 Phone Unavailable Primary Care Provider Unavailabl e Social History Tobacco UseTypesPacks/DayYears UsedDateSmoking Tobacco: Never AssessedUT Safety & EnvironmentAnswerDate RecordedFear of Current or Ex-PartnerNot on file 05/05/2023Emotionally AbusedNot on file05/05/2023hysically AbusedNot on file 05/05/2023Sexually AbusedNot on file4Physically or Sexually AbusedNot on file05/05/2023Sex and Gender InformationValueDate RecordedSex Assigned at BirthNot on fileLegal TxnSdkf1909/10/2021 12:44 AM EDTGender IdentityNot on file Sexual OrientationNot on file Last Filed Vital Signs Vital SignReadingTime TakenCommentsBlood Pzmlaqdl665/8106 1:18 PM EDT Bvsoo070609/01/2021 1:18 PM VYCWbtcgcbfmcj56.6 ??C (97.8 ??F)09/01/2021 1:18 PM EDTRespiratory Rate--Oxygen Zwgwsztrcz210%07/21/2021 2:07 PM EDTInhaled Oxygen Concentration--Fkcdox40.9 kg (140 lb 12.8 oz)09/01/2021 1:18 PM NRNBnntmm863.2 cm (5' 7 )09/01/2021 1:18 PM EDTBody Mass Index22.05009/01/2021 1:18 PM EDT Plan of Treatment DateTypeDepartmentCare Team (Latest Contact Info)Nqrlanmthlk88/11/2025 11:00 AM ESTOffice Visit [facility] [address] [place] [address] Amisha Dimas MD [address] [facility] [address] [facility] [place] [address] Health MaintenanceDue DateLast DoneCommentsDepression Qtjqvqkqd78/03/1998 Hepatitis B Vaccines (2 of 3 - 3-dose series)Varicella Vaccines (1 of 2 - 13+ 2-dose series)1998Pneumococcal Vaccine: Pediatrics (0 to 5 Years) and At-Risk Patients (6 to 64 Years) (1 of 2 - PCV)2004 Adult Hefcoxg7311/15/2007HPV Vaccines (1 - 3-dose SCDM series)2012COVID-19 Vaccine (1 - 2024- season)2024Influenza Vaccine (#1) Zoster Vaccines (1 of 2)11/15/2035HIB NfkvofvxUxvqrdlqu60/18/1988IPV Vaccines Hrmasxwov63/23/1991, 12/30/1987, 05/15/1986, Additional history exists Meningococcal B VaccineAged OutNo longer eligible based on patient's age to complete this topicMeningococcal VaccineAged OutNo longer eligible based on patient's age to complete this topicRotavirus VaccinesAged OutNo longer eligible based on patient's age to complete this topic Insurance
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
--- NOTE | 2025-02-06 09:35 | PC.NURSE ---
Nursing Note Cardiac Stress Test Reviewed: Medication, allergies and patient history reviewed. Stress Test: [x ] Patient tolerated stress test well. [ ] Patient unable to tolerate walking on treadmill. Switched to Lexiscan stress test. [ ] No chest pain noted per patient [x ] Chest pain that resolved prior to leaving stress lab. [ ] No dyspnea noted. [ x] Dyspnea that resolved prior to leaving stress lab. [x ] Patient left stress lab asymptomatic and hemodynamically stable. [ ] Patient taken to the Emergency Room due to non-resolving symptoms following stress test. [ x] Patient achieved target heart rate. [ ] Patient unable to achieve target heart rate. [ ] Aminophylline administered as reversal agent to Lexiscan (Regadenoson). [ ] Nitro administered. Nursing Comments:Pt had minimal chest pain that resolved prior to leaving stress lab. Pt states this is the same pain that caused the Dr to order the stress test.
== END 2025-02-06 08:47 | disposition home or self-care (01) ==
LOC: CARD 08:46
PROVIDERS: PCP Nurse Practitioner Family; Visit Provider Nurse Practitioner Family
DX: R07.9 Chest pain, unspecified (principal)
CPT/HCPCS: 93017

== ENCOUNTER 2025-02-14 08:54 | Outpatient (OUT) | payer OTHER, SELFPAY ==
--- OUTSIDE RECORDS SUMMARY | 2015-05-30 08:22 | XMS_ITS | Continuity of Care Document ---
Author Organization [facility] Address [address] [place] [address] Phone Care Team Providers Care Refrigeration Engineering Teacher Name Role Phone Nurse, [facility] Unavailable Unavailable Allergies, Adverse Reactions, Alerts Substance [...] Diagnoses Date Provider Providers Copied on Encounter [facility], [address], [place], [place], [id number], [place] tel:[phone] [facility] No Information 6 Nurse [facility]. [address] [place], [address], [place]. tel:[phone] OFFICE/OUTPA TIENT VISIT, EST [facility], [address] [address], [place], [place], [address], [place] tel:[phone] [facility] * F/U Depression (chief complaint) Finger pain, rightDepression 5 Bursnall Pily. [address] [place], [address], [place]. tel:[phone] [facility], [address] [address], [place], [place], [address], [place] tel:[phone] [facility] Diagnosis deferred 5 No Information OFFICE/OUTPA TIENT VISIT, EST [facility], [address] [address], [place], [place], [address], [place] tel:[phone] [facility] * F/U Labs (chief complaint) DepressionHistor y of pneumothoraxLeft -sided low back pain without sciatica 5 Bursnall Pily. [address] [place], [address], [place]. tel:[phone] [facility], [address] [address], [place], [place], [address], [place] tel:[phone] [facility] No Information 5 Pharmacy [facility]. [address] [place], [address]. tel:[phone] [facility], [address] [address], [place], [place], [address], [place] tel:[phone] [facility] Diagnosis deferred 5 No Information OFFICE/OUTPA TIENT VISIT, NEW [facility], [address] [address], [place], [place], [address], [place] tel:[phone] [facility] * New pt visit (chief complaint) History of pneumothoraxDepr essionLeft-sided low back pain without sciaticaHistory of substance abuse 5 Bursnall Pily. [address] [facility], [address], [place]. tel:[phone] Family History Family Member Type Diagnosis Age At Onset Brother Problem (finding) prostate cancer Payers Payer name Insurance type Covered constitution party ID Georgia blackman(s) [facility] Medicaid [id number] Social History Type Description Quantity Date Captured [...] counseling completed Referral ordered Referral Ordered: Pulmonology [id number] Ordered: Physical Therapy ordered History Of Present Illness Encounter Date Complaint History Of Prese nt Illness * F/U Depression Patient is not taking meds. He has not called Myesha Suarez to get into counseling. His R pointer finger knuckle has been hurting for 2 months. He reports that he smashes hands all the time at work, and works [employer]. * F/U Labs Patient presents for lab [...] He did see a lung specialist in [place], twice. He did not get specific treatment thought was short of breath at that point.He is under a great deal of stress as just moved here, girlfriend had baby a month early and baby was in NICU and now is 3 weeks old, has other kids in [place] and lost custody to exwife. He lost [...]
--- OUTSIDE RECORDS SUMMARY | 2020-06-10 07:03 | XMS_ITS | Continuity of Care Document ---
Author Organization [facility] Address [address] [place] [address] Phone Care Team Providers Care Sexual Health Physician Name Role Phone Dc Peraza Unavailable Unavailable Allergies, Adverse Reactions, Alerts Substance Reaction Status Criticality No Known Allergies Active No Inform ation Procedures Procedure Date Covid Testing [facility] Prophylaxis Adult Tobacco Counseling Oral Hygiene Instruction PPE Intraoral-periapical 1st Film 0 Amislylla-dsdesededc-hnrb Additional Aug Nqklwycaj-kctdmdxjxl-kqzu Additional Aug Comp Oral Eval New/estab Patient 2019 Oral Hygiene Instruction Extract; Erupted Th/exposted Rt 020 Limited Oral Eval Oral Hygiene Instruction FLU VACCINE, 3 YRS & >, IM FLU VACCINE, 3 YRS & >, IM OFFICE/OUTPATIENT VISIT, EST FLU VACCINE, 3 YRS & >, IM FLU VACCINE, 3 YRS & >, IM Advance Directives Directive Yes / No Effective Date File Name No Information Encounters Encounter Description Practice Location Reason(s) For Visit Diagnoses Date Provider Providers Copied on Encounter [facility], [address] [place], [place], [id number], [place] tel:[phone] [facility] No Information May- 1 Beverley Du. [address] [place] [address], [id number] , [place]. tel:[phone] [facility], [address] [place] [address], [id number], [place] tel:[phone] COVID [facility] Encounter for screening for other viral disease 0 Beverley Du. [address] [place], [place], [address] , [place]. tel:[phone] [facility], [address] [place], [place], [address], [place] tel:[phone] [facility] Clinic Prophy (chief complaint) Encounter for screening for dental disorders 0 Green DMD Michelle. [address] [place], [place], [address] , [place]. tel:[phone] [facility], [address] [place], [place], [address], [place] tel:[phone] [facility] Clinic Dental New (chief complaint) Encounter for screening for dental disorders 0 Peter Kumarry. [address] [place], [place], [address] , [place]. tel:[phone] [facility], [address] [place], [place], [address], [place] tel:[phone] Dental Clinic Dental Emergency (chief complaint) Encounter for screening for dental disorders 0 Peter SPIVEY Michelle. [address] [place], [place], [address] , [place]. tel: [phone] OFFICE/OUTPAT IENT VISIT, EST [facility], [address] [place], [place], [address], [place] tel:[phone] [facility] Influenza Vaccine 3-201 1 Beverley Du[address] [place], [place], [address] , [place]. tel:[phone] [facility], [address] [place], [place], [address], [place] tel:[phone] [facility] No Information 2-200 9 Viscdenise Du[address] [place], [place], [address] , [place]. tel: [phone] [facility], [address] [place], [place], [address], [place] tel:[phone] [facility] No Information 8 Beverley Du. [address] [place], [place], [address] , [place]. tel:[phone] Family History Family Member Type Diagnosis Age At Onset Father Problem Alive and well Mother Problem Alive and well Immunizations Vaccine Date Status Comments Flu (split) (3 yrs or older) administered Source: New Immunization Record Payers Payer name Insurance type Covered democrat ID Authoriza tion(s) No Information Social History Type Description Quantity Date Captured Comments Alcohol Use Details Unknown Caffeine Use Details Unknown Tobacco Use Status Smoking Status No Information Sex Male Sexual Orientation Straight or heterosexual Gender Identity Male Chief Complaint And Reason For Visit No Information Reason For Referral Reason For Referral No Information Plan Of Treatment Date Type Action Status Referral Ordered: Dentistry (related to Encounter for screening for dental disorders) [id number] Ordered: Referrals: Dentistry. Evaluate and treat ordered History Of Present Illness Encounter Date Complaint History Of Prese nt Illness Prophy Prophy Dental New Dental New Dental Emergency Dental Emergenc y Functional Status Date Functional Assessmen t No Information Instructions Date Instruction Additional Infor mation No Information Assessments Type Assessment Date No Information Patient Care Teams Name Effective Dates (start - stop) Status Members No Information
--- OUTSIDE RECORDS SUMMARY | 2024-09-27 04:30 | XMS_ITS ---
Author Organization [facility] in [place] Address [address] [place] [address] Care Team Providers Care Swimming Pool Serviceperson Name Role Phone Poornima Ramos Primary Care Provider REASON FOR VISIT want pe Encounters Encounter Location Date Provider Diagnosis [facility] [address] [place] [address] 09/27/2024 Poornima Ramos Plan Of Treatment No Information Progress Notes * SHREEIfeanyiKiraOB:1985 (39 yo M)Acc No.[id number]:09/27/2024 UNLOCKED PROGRESS NOTE Progress Note Patient: Elliott DOHERTY :?Poornima Ramos ([facility]), CNPDOB:1985 ???Age:38 Y???Sex:MaleDate:09/27/2024Phone:[phone]:[facility] [place], [phone] Subjective: * Chief Complaints: * 1 . Want pe. * Medical History: Objective: * Vitals: Assessment: Plan: * Treatment: * * Electronic signature of Poornima Ramos NP, MANAGER LABOR DELIVERY.CLINICAL BUSINESS ANALYST.[id number] on 02/14/2025 at 08:58 AM ESTSign off status: PendingVisit Status:?CANCPHONE (Cancelled Phone) * Provider: Marlo Ramos (ARUNA), CLINICAL BUSINESS ANALYST Date: 0 09/27/2024 Generated for Printing/Faxing/eTransmitting on:?02/14/2025 08:58 AM EST
--- OUTSIDE RECORDS SUMMARY | 2024-12-20 04:00 | XMS_ITS ---
Author Organization The [facility] in [place] Address [address] [place] [address] Care Team Providers Care Systems Administration Analyst Name Role Phone Poornima Ramos Primary Care Provider [phone] REASON FOR VISIT wants referral Encounters Encounter Location Date Provider Diagnosis [facility] [address] [place] [address] 12/20/2024 Poornima Ramos Plan Of Treatment No Information Progress Notes * SHREEIfeanyiKiraOB:1985 (39 yo M)Acc No.[id number]:12/20/2024 UNLOCKED PROGRESS NOTE Progress Note Patient: Elliott DOHERTY :?Poornima Ramos (TTC), BENJIDOB:1985 ???Age:39 Y???Sex:MaleDate:12/20/2024Phone:[phone]:[facility] Abdullahi Edmond [facility] Subjective: * Chief Complaints: * 1 . Wants referral. * Medical History: Objective: * Vitals: Assessment: Plan: * Treatment: * * Electronic signature of Poornima Ramos NP, LAND ACQUISITION MANAGER.INTENSIVE CARE MEDICINE SPECIALIST.[email or web address] on 02/14/2025 at 08:59 AM ESTSign off status: PendingVisit Status:?CANCPHONE (Cancelled Phone) * Provider: Marlo MAYS), INTENSIVE CARE MEDICINE SPECIALIST Date: 1 Generated for Printing/Faxing/eTransmitting on:?02/14/2025 08:59 AM EST
--- NOTE | 2025-02-14 08:57 | MR_ITS ---
The [address] [address] Patient Name: CLOVIS ROBLEDO MRN: [id number] date: 1985 Sex: M Assigned Patient Location: MRI Current Patient Location: MRI Accession/Order Number: [id number] Exam Date: 02/14/2025 09:05 Report Date: 02/14/2025 16:11 At the request of: CRISELDA NEAL Procedure: MR cervical spine wo con EXAMINATION: MRI OF THE CERVICAL SPINE WITHOUT CONTRAST CLINICAL DATA: Neck Pain TECHNIQUE: Multiecho imaging was performed in the sagittal and axial plane without contrast administration. FINDINGS: Craniocervical junction is maintained. Cervical vertebral body heights, alignment and bone marrow signal is grossly unremarkable. No prevertebral or paraspinal soft tissue abnormality. Moderate disc space narrowing at C4-C5. Mild Modic type I endplate changes at C4-C5. Cervical cord demonstrates normal signal and morphology. C2-3: Mild left facet arthropathy. No significant disc disease or disc protrusion. Neuroforamina canal is patent. C3-C4: Minor annular bulge. Uncovertebral and facet arthropathy identified. Mild foraminal narrowing. C4-C5: Moderate broad-based disc osteophyte complex with uncovertebral spurring and facet arthropathy causing moderate central canal stenosis and moderate right moderate to severe left-sided neural foraminal narrowing. C5-6: Disc desiccation. There is bilateral uncovertebral spurring. Canal is patent. There is moderate neural foraminal narrowing. C7: Minimal uncovertebral and facet arthropathy. No significant disease is protrusion central canal or neuroforaminal identified C7-T1: Disc desiccation with moderate facet arthropathy on the right and mild left facet arthropathy. Canal neural foramina patent. No significant disc disease or disc protrusion. MR/MR cervical spine wo con IMPRESSION: Moderate degenerative changes at C4-C5 with left greater than right neural foraminal narrowing. Impression dictated by: Adam Blancas M.D. 02/14/2025 4:11 PM Dictation Location: [place] [address] Electronically authenticated by: [id number] Y Date: 02/14/2025 16:11
--- OUTSIDE RECORDS SUMMARY | 2025-02-14 08:59 | XMS_ITS | Clinical Summary ---
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 Name Role Phone Unavailable Primary Care Provider Unavailabl e Social History Tobacco UseTypesPacks/DayYears UsedDateSmoking Tobacco: Never AssessedUT Safety & EnvironmentAnswerDate RecordedFear of Current or Ex-PartnerNot on file 05/05/2023Emotionally AbusedNot on file05/05/2023hysically AbusedNot on file 05/05/2023Sexually AbusedNot on file4Physically or Sexually AbusedNot on file05/05/2023Sex and Gender InformationValueDate RecordedSex Assigned at BirthNot on fileLegal DmeFghr0609/10/2021 12:44 AM EDTGender IdentityNot on file Sexual OrientationNot on file Last Filed Vital Signs Vital SignReadingTime TakenCommentsBlood Jadvxzgt751/8106 1:18 PM EDT Hhcwz317109/01/2021 1:18 PM MFOYrynbmfuczv97.6 ??C (97.8 ??F)09/01/2021 1:18 PM EDTRespiratory Rate--Oxygen Jzriltovor040%07/21/2021 2:07 PM EDTInhaled Oxygen Concentration--Vibyin86.9 kg (140 lb 12.8 oz)09/01/2021 1:18 PM DXNZxwsze328.2 cm (5' 7 )09/01/2021 1:18 PM EDTBody Mass Index22.05009/01/2021 1:18 PM EDT Plan of Treatment DateTypeDepartmentCare Team (Latest Contact Info)Iulrwetpeej49/11/2025 11:00 AM ESTOffice [facility] [address] [place] [address] Amisha Dimas MD [address] [facility] [place] [address] [facility] [place] [address] Health MaintenanceDue DateLast DoneCommentsDepression Tdpanxpcl28/03/1998 Hepatitis B Vaccines (2 of 3 - 3-dose series)Varicella Vaccines (1 of 2 - 13+ 2-dose series)1998Pneumococcal Vaccine: Pediatrics (0 to 5 Years) and At-Risk Patients (6 to 64 Years) (1 of 2 - PCV)2004 Adult Bfkxtva0611/15/2007HPV Vaccines (1 - 3-dose SCDM series)2012COVID-19 Vaccine (1 - 2024- season)2024Influenza Vaccine (#1) Zoster Vaccines (1 of 2)11/15/2035HIB DgmjkrdsVcgtubmrq76/18/1988IPV Vaccines Fkaedlvzw15/23/1991, 12/30/1987, 05/15/1986, Additional history exists Meningococcal B VaccineAged OutNo longer eligible based on patient's age to complete this topicMeningococcal VaccineAged OutNo longer eligible based on patient's age to complete this topicRotavirus VaccinesAged OutNo longer eligible based on patient's age to complete this topic Insurance
--- OUTSIDE RECORDS SUMMARY | 2025-02-14 08:59 | XMS_ITS | Patient Health Record ---
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 smokes 1/2 ppd, no alcohol. smokes 1/2 ppd, no alcohol. 10/07/14: smokes 1/2-1 ppd, n o alcohol and denies illegal drug use. smokes 1/2 ppd, no alcohol. smokes 1/2 ppd, no alcohol. smokes 1/2 ppd, no alcohol. smokes 1/2 ppd, no alcohol. Problems Problem Type SNOMED Code ICD Code Onset Dates Problem Status W/U Status Risk Notes Problem Lipoma (76428950) Lipoma of other specifi ed sites (214.8) ActiveconfirmedProblemAnxiety state (103130033)Anxiety state, unspecified (300.00)ActiveconfirmedProblemDepressive disorder (74143083)Depressive disorder, not elsewhere classified (311)ActiveconfirmedProblemChronic pain syndrome (651597784)Chronic pain syndrome (338.4)ActiveconfirmedProblemReflux esophagitis (607015922)Reflux esophagitis (530.11)ActiveconfirmedProblemLumbago (388305891) Lumbago (724.2)ActiveconfirmedProblemCostochondritis (98480925)Costochondritis (733.6)ActiveconfirmedProblemInsomnia (047586842)Insomnia, unspecified (780.52) ActiveconfirmedProblemPain,Back-Muscoskeletal (781.99)ActiveconfirmedProblem Sprain of ligament of joint (876586057)Unspecified site of sprain and strain (848.9)ActiveconfirmedProblemHarmful pattern of use of tobacco (disorder) (6160264557)Personal history of tobacco use, presenting hazards to [...]
--- OUTSIDE RECORDS SUMMARY | 2025-02-14 08:59 | XMS_ITS | Patient Health Record ---
Author Organization [facility] in [place] Address [address] [place] [address] Care Team Providers Care Vessel Engineer Name Role Phone Poornima Ramos Primary Care Provider Allergies No Known Allergies Results Component Value Reference Range Notes XR thoracic spine 2V Reviewed date:12/21/2024 12:10:03 PM Interpretation: Performing Lab: Notes/Report: Source Facility: [place] [address] XRay Report Signed Patient: CLOVIS SWANN MR#: [id number] : 1985 Acct:[id number] Age/Sex: 39 / M ADM Date: 12/20/24 Loc: CARD Attending Dr: POORNIMA RAMOS Ordering Physician: POORNIMA RAMOS Date of Service: 12/20/24 Procedure(s): XR thoracic spine 2V Accession Number(s): [id number] cc: POORNIMA RAMOS [place] [address] Patient Name: CLOVIS SWANN MRN: [id number] date: 1985 Sex: M Assigned Patient Location: CARD Current Patient Location: CARD Accession/Order Number: [id number] Exam Date: 12/20/2024 14:50 Report Date: 12/20/2024 [...] Blancas M.D. 12/20/2024 3:58 PM Dictation Location: [place] [address] Electronically authenticated by: [id number] Y Date: 12/20/2024 15:58 Dictated By: Adam Blancas M.D. Signed By: 12/20/24 1601 DD/ 1558 TD/TT: Organic Chemistry Teacher: MELINDA by IFA Reviewed date:10/04/2024 08:51:19 AM Interpretation: Performing Lab: Notes/Report: [facility] , Antinuclear Antibodies, IFA Negative . Negative <1:80 Borderline 1:80 Positive >1:80 ICAP nomenclature: AC-0 For more information about Hep-2 cell patterns use ANApatterns.org, the official website for the International Consensus on Antinuclear Antibody (MELINDA) Patterns (ICAP). Performed at: - [facility] [address] [id number] Engagement Engineer: Vimal Holm PhD, Phone: [phone] Performing Lab: see note - [facility] LBCBC AUTO DIFF Reviewed date:10/02/2024 08:23:45 AM Interpretation: Performing Lab: Notes/Report: [facility] ,White Blood Count7.04.0-11.0 10 3/uLRed Blood Count4.534.70-6.10 10 6/uL Pdvurbhhnl06.314.0-18.0 g/fSDdvoxhvitp80.142.0-54.0 %Mean Corpuscular Ezoemi66.4 80.0-94.0 fLMean Corpuscular Mcainjxeds99.825.9-34.0 pgMean Corpuscular HGB Conc 34.729.9-35.2 g/dLRed Cell Distribution Width11.911.0-15.0 %Platelet Jlflp269 150-450 10 3/uLMean Platelet Yqlnpq07.39.5-13.5 fLNeutrophils Percent Auto63.4 43.0-75.0 %Lymphocytes Percent Auto22.420.5-60.0 %Monocytes Percent Auto11.61.7- 12.0 %Eosinophils Percent Auto2.00.9-7.0 %Basophils Percent Auto0.30.2-2.0 % Immature Granulocytes Pct Auto0.30.0-0.5 %Neutrophils Absolute Auto4.51.4-6.5 10 3/uLLymphocytes Absolute Auto1.61.2-3.8 10 3/uLMonocytes Absolute Auto0.80.3-0.8 10 3/uLEosinophils Absolute Auto0.10.0-0.7 10 3/uLBasophils Absolute Auto0.00.0- 0.1 10 3/uLImmature Granulocytes Abs Auto0.020.00-0.03 10 3/uLPerforming Lab:see noteML - [facility] LBFREE T3 Reviewed date:10/02/2024 08:23:45 AM Interpretation: Performing Lab: Notes/Report: [facility] ,Free T32.452.18-3.98 pg/mLPerforming Lab:see noteML - [facility] LB GLYCOHEMOGLOBIN A1C Reviewed date:10/02/2024 08:23:45 AM Interpretation: Performing Lab: Notes/Report: [facility] ,Glycohemoglobin A1C5.04.5-6.2 % ADA RECOMMENDED LIMIT 4.0 - 6.0 ADA THERAPEUTIC TARGET < 7.0 ACTION SUGGESTED > 7.0 Estimated Average Dnfatlb49Sebgpcfpjs Lab:see noteML - [facility] LB LIPID PROFILE Reviewed date:10/02/2024 08:23:45 AM Interpretation: Performing Lab: Notes/Report: [facility] ,Mzwvwajvcxkag22<=150 mg/gPJmobtssixzm692<=200 mg/dLHDL Oulaprxhhjj8515-78 mg/dL > or =60 mg/dl - LOW CARDIOVASCULAR RISK <40 mg/dl - HIGH CARDIOVASCULAR RISK LDL Cholesterol Boqvgwpgfz97.0 <100 mg/dl OPTIMAL 100-129 mg/dl NEAR OR ABOVE OPTIMAL 130-159 mg/dl BORDERLINE HIGH 160-189 mg/dl HIGH >190 mg/dl VERY HIGH VLDL NZWZNPSXZOF91.0Chol HDL Ratio3.0 3.3 - 4.4 LOW RISK 4.4 - 7.1 AVERAGE RISK 7.1 - 11.0 MODERATE RISK >11.0 HIGH RISK Performing Lab:see noteML - [facility] LBPROF 14(COMP METB) Reviewed date:10/02/2024 08:23:45 AM Interpretation: Performing Lab: Notes/Report: [facility] ,Ikuvyy313441-241 mmol/LPotassium3.73.5-5.1 mmol/ERwdatveu02293-673 mmol/LCarbon Qfempnl51.921.0-32.0 mmol/LAnion Gap13.2Krpxeuz0942-295 mg/dLBlood Urea Nitrogen 18.07.0-18.0 mg/dLCreatinine1.140.70-1.30 mg/dLEstimated GFR ( Rachel>60 >=60 mL/min/1.73m 2Estimated GFR (Non- Britni>60>=60 mL/min/1.73m 2BUN Creatinine Ratio15.5Grrcbwq0.18.5-10.1 mg/dLBilirubin Total0.40.2-1.0 mg/dL Aspartate Amino Iuansvcgtch7411-74 U/LAlanine Liekqidpqqpubalo9793-48 U/L Alkaline Uivdwrjjivr8526-257 U/LTotal Protein7.66.4-8.2 g/dLAlbumin Level3.93.4- 5.0 g/dLGlobulin3.7Albumin Globulin Ratio1.1Performing Lab:see noteML - [facility] LBT4 Reviewed date:10/02/2024 08:23:45 AM Interpretation: Performing Lab: Notes/Report: [facility] ,T4 Thyroxine8.904.50-12.10 ug/dLPerforming Lab:see noteML - [facility] LBTSH Reviewed date:10/02/2024 08:23:45 AM Interpretation: Performing Lab: Notes/Report: [facility] ,Thyroid Stimulating Hormone1.9250.358-3.740 uIU/mLPerforming Lab:see note - [facility] LBAntistreptolysin O Ab Reviewed date:10/04/2024 08:51:19 AM Interpretation: Performing Lab: Notes/Report: [facility] ,Antistreptolysin O Ab59.80.0-200.0 IU/mL Performed at: [facility] [address] [id number] Engagement Engineer: Vimal Holm PhD, Phone: [phone] Performing Lab:see noteLC - [facility] LBUS abdomen limited Reviewed date:10/04/2024 08:50:43 AM Interpretation: Performing Lab: Notes/Report: Source Facility: [place] [address] [place] [address] Ultrasound Report Signed Patient: CLOVIS SWANN MR#: [id number] : 1985 Acct:[id number] Age/Sex: 38 / M ADM Date: 10/03/24 Loc: US Attending Dr: POORNIMA RAMOS Ordering Physician: POORNIMA RAMOS Date of Service: 10/03/24 Procedure(s): US abdomen limited Accession Number(s): [id number] cc: POORNIMA RAMOS [place] [address] Patient Name: CLOVIS SWANN MRN: [id number] date: 1985 Sex: M Assigned Patient Location: US Current Patient Location: US Accession/Order Number: [id number] Exam Date: 10/03/2024 10:26 Report Date: 10/03/2024 [...] Jr., D.O. 10/03/2024 10:29 AM Dictation Location: [place] [address] Electronically authenticated by: [id number] Y Date: 10/03/2024 10:29 Dictated By: Cory Quiroga M.D. Signed By: 10/03/24 1031 DD/ 1029 TD/TT: Organic Chemistry Teacher:CT CHEST W CON Reviewed date:01/29/2025 01:44:58 PM Interpretation: Performing Lab: Notes/Report: Source Facility: [place] [address] CT Scan Report Signed Patient: CLOVIS SWANN MR#: [id number] : 1985 Acct:[id number] Age/Sex: 39 / M ADM Date: 01/24/25 Loc: CT Attending Dr: POORNIMA RAMOS Ordering Physician: POORNIMA RAMOS Date of Service: 01/24/25 Procedure(s): CT chest w con Accession Number(s): [id number] cc: POORNIMA RAMOS [place] [address] Patient Name: CLOVIS SWANN MRN: [id number] date: 1985 Sex: M Assigned Patient Location: CT Current Patient Location: CT Accession/Order Number: [id number] Exam Date: 01/24/2025 10:00 Report Date: 01/24/2025 [...] Desai M.D. 01/24/2025 10:58 AM Dictation Location: [place] [address] Electronically authenticated by: [id number] Y Date: 01/24/2025 10:58 Dictated By: Ginger Desai M.D. Signed By: 01/24/25 1101 DD/ 1058 TD/TT: Organic Chemistry Teacher:XR chest 2V Reviewed date:12/21/2024 12:10:03 PM Interpretation: Performing Lab: Notes/Report: Source Facility: [place] [address] XRay Report Signed Patient: CLOVIS SWANN MR#: [id number] : 1985 Acct:[id number] Age/Sex: 39 / M ADM Date: 12/20/24 Loc: CARD Attending Dr: POORNIMA RAMOS Ordering Physician: POORNIMA RAMOS Date of Service: 12/20/24 Procedure(s): XR chest 2V Accession Number(s): [id number] cc: POORNIMA RAMOS [place] [address] Patient Name: CLOVIS SWANN MRN: [id number] date: 1985 Sex: M Assigned Patient Location: CARD Current Patient Location: CARD Accession/Order Number: [id number] Exam Date: 12/20/2024 14:50 Report Date: 12/20/2024 [...] Blancas M.D. 12/20/2024 3:57 PM Dictation Location: [place] [address] Electronically authenticated by: [id number] Y Date: 12/20/2024 15:57 Dictated By: Adam Blancas M.D. Signed By: 12/20/24 1600 DD/ 1557 TD/TT: Organic Chemistry Teacher:XR cervical spine 2-3V Reviewed date:10/02/2024 08:23:45 AM Interpretation: Performing Lab: Notes/Report: Source Facility: [place] [address] XRay Report Signed Patient: CLOVIS SWANN MR#: [id number] : 1985 Acct:[id number] Age/Sex: 38 / M ADM Date: 10/01/24 Loc: LAB Attending Dr: POORNIMA RAMOS Ordering Physician: POORNIMA RAMOS Date of Service: 10/01/24 Procedure(s): XR cervical spine 2-3V Accession Number(s): [id number] cc: POORNIMA RAMOS [place] [address] Patient Name: CLOVIS SWANN MRN: [id number] date: 1985 Sex: M Assigned Patient Location: LAB Current Patient Location: LAB Accession/Order Number: [id number] Exam Date: 10/01/2024 10:50 Report Date: 10/01/2024 [...] Jr., D.O. 10/01/2024 10:51 AM Dictation Location: [place] [address] Electronically authenticated by: [id number] Y Date: 10/01/2024 10:51 Dictated By: Cory Quiroga M.D. Signed By: 10/01/24 1053 DD/ 1051 TD/TT: Organic Chemistry Teacher:XR lumbar spine 2-3V Reviewed date:10/02/2024 08:23:45 AM Interpretation: Performing Lab: Notes/Report: Source Facility: [place] [address] XRay Report Signed Patient: CLOVIS SWANN MR#: [id number] : 1985 Acct:[id number] Age/Sex: 38 / M ADM Date: 10/01/24 Loc: LAB Attending Dr: POORNIMA RAMOS Ordering Physician: POORNIMA RAMOS Date of Service: 10/01/24 Procedure(s): XR lumbar spine 2-3V Accession Number(s): [id number] cc: POORNIMA RAMOS [place] [address] Patient Name: CLOVIS SWANN MRN: [id number] date: 1985 Sex: M Assigned Patient Location: LAB Current Patient Location: LAB Accession/Order Number: [id number] Exam Date: 10/01/2024 10:51 Report Date: 10/01/2024 [...] Jr., D.O. 10/01/2024 10:51 AM Dictation Location: [place] [address] Electronically authenticated by: [id number] Y Date: 10/01/2024 10:51 Dictated By: Cory Quiroga M.D. Signed By: 10/01/24 1054 DD/ 1051 TD/TT: Organic Chemistry Teacher:URIC ACID SERUM Reviewed date:10/02/2024 08:23:45 AM Interpretation: Performing Lab: Notes/Report: [facility] ,Uric Acid3.53.5-7.2 mg/dLPerforming Lab:see note - [facility] LB RHEUMATOID FACTOR Reviewed date:10/04/2024 08:51:19 AM Interpretation: Performing Lab: Notes/Report: [facility] ,Rheumatoid Factor (RF)<10.0<14.0 IU/mLPerforming Lab:see note - [facility] LBCRP Reviewed date:10/02/2024 08:23:45 AM Interpretation: Performing Lab: Notes/Report: [facility] ,C Reactive Protein2.65<=0.50 mg/dLPerforming Lab:see note - [facility] LBINSULIN Reviewed date:10/02/2024 08:23:45 AM Interpretation: Performing Lab: Notes/Report: [facility] ,Insulin7.02.6-24.9 uIU/mL Performed at: [address] [id number] Engagement Engineer: Vimal Holm PhD, Phone: [phone] Performing Lab:see noteLC - [facility] LB Reason For Referral Diagnosis 1 Neck pain (M54.2) Diagnosis [address] [facility] (M54.50) Referral Organization [facility] Referring Provider First Name Poornima Referring Provider Last Name Rachel Referring Provider [facility] icine Referred Provider [facility], Physical Therap y Referred Provider Specialty Physical The rapist Referral Priority Routine Reason chronic neck and sarah k pain Diagnosis 1 Back pain (M54.9) Diagnosis 2 Neck pain (M54.2) Referral Organization [facility] Referring Provider First Name Poornima Referring Provider Last Name Rachel Referring Provider [facility] icine Referred Provider TB, Physical Therap y Referred Provider Specialty Physical The rapist Referral Priority Routine Reason palpitations, tachy, april Diagnosis 1 Palpitations (R00.2) Diagnosis 2 Intermittent chest p ain (R07.9) Referral Organization [facility] Referring Provider First Name Poornima Referring Provider Last Name Rachel [facility] Eitan Das Referred Provider Specialty Cardiology Referral Priority Routine Reason pain assoc with lipo ma (likely per [place]) on left back, also lump left forearm and left hand with pain Diagnosis 1 Lipoma (D17.9) Referral Organization [facility] Referring Provider First Name Poornima Referring Provider Last Name Rachel [facility] Referred Provider Itz Oconnor Referred Provider [...] in the past year?Less than monthly (1 point)Rogfkk7Glzvrsgbwwyfjv NegativeAUDIT-C (Standard) Question Answer Notes Did you have a drink containing alcohol in the p ast year? No Jrxzbf6HsrwyjkznprrygQnphpxkl Problems Problem Type SNOMED Code ICD Code Onset Dates Problem Status W/U Status Risk Notes Problem Anxiety disorder (951708815) Anxiety diso rder, unspecified (F41.9) ActiveconfirmedProblemChronic pain (41477849)Other chronic pain (G89.29)Active confirmedProblemSciatica (13569012)Lumbago with sciatica, right side (M54.41) ActiveconfirmedProblemNeck pain (73804219)Neck pain (M54.2)Activeconfirmed ProblemArthritis (0121392)Arthritis (M19.90)ActiveconfirmedProblemInsomnia (454062476)Insomnia (G47.00)ActiveconfirmedProblemPulmonary emphysema (87412292) Pulmonary emphysema, unspecified emphysema type (J43.9)ActiveconfirmedProblem Current smoker (19554627)Current smoker (F17.200)ActiveconfirmedProblemLung mass (722062391)Lung mass (R91.8)ActiveconfirmedProblemHistory of respiratory disease (616988177)H/O pneumothorax (Z87.09)ActiveconfirmedProblemHistory of non-ST segment elevation myocardial infarction (007437281)History of heart attack (I25.2)ActiveconfirmedProblemMixed anxiety and depressive disorder (139894341) Anxiety and depression (F41.8)Activeconfirmed Vital Signs Blood pressure diastolic 54 mm Hg 01/30/2025 Cpuwyn73 in01/30/2025lood pressure mm Hg01/30/20253325Rgflfe784.6 lbs 01/30/2025BMI21.08 kg/m201/30/2025 Procedures Procedure Date Ordered Date Performed Result Body Sit e Holter Monitor - 3 days up to 14 days 12/11/2024 N/ACARDIO Stress Test - Treadmill Lhqhocif51/19/2025N/A Encounters Encounter Location Date Provider Diagnosis [facility] [address] [place] [address] 12/11/2024 Poornima Ramos Anxiety and depressi on F41.8 ; Palpitations R00.2 ; Back pain M54.9 ; Neck pain M54.2 and Lung mass R91.8 [facility] [address] [place] [address] 01/30/2025 Poornima Ramos Anxiety and depressi on F41.8 ; Neck pain M54.2 ; Lumbago with sciatica, right side M54.41 ; Back pain M54.9 ; Intermittent chest pain R07.9 ; Palpitations R00.2 and Lipoma D17.9 [facility] [address] [place] [address] 10/01/2024 Poornima Ramos Wellness examination Z00.00 ; Back pain M54.9 ; Neck pain M54.2 ; Lump R22.9 ; Tendonitis M77.9 ; Insomnia G47.00 ; Arthritis M19.90 ; Current smoker F17.200 and Anxiety and depression F41.8 [facility] [address] [place] [address] 10/08/2024 Poornima Ramos Arthritis M19.90 [facility] [address] [place] [address] 10/01/2024 Poornimastaci Ramos [facility] [place] [address] 10/02/2024Pamela LeobardomerFamily [facility] Hospital[address] [place] [address]/Pamela CramerNeck pain M54.2 and Low back pain at multiple sites M54.50[facility] [place] [address]/Pamela [facility] [address] [facility] [place] [address]/12/2024Poornima RamosLung mass [place]91.[place] [address] [facility] [address] 01/15/2025[facility]ima [facility] [facility] [place] [address]/07/2024Pajaqueline [facility] [address] [facility] [place] [address]/02/2025Pajaqueline [facility] [place] [address]/ Poornima [facility] [facility] [place] [address]/Poornima Boothmartha's vineyard hospitalAbnormal Holter monitor finding R94.31 and Lipoma D17.9[place] [address] [place] [address]/04/2024Poornima Ramos Assessments Encounter Date Diagnosis (ICD Code) Assessment [...] - 3 days up to 14 days US SOFT TISSUE LIMITED AREA 10/01/2024 CMP (COMP MET RAE) w/eGFR CKD-EPI 2024 CBC WITH DIFF 10/01/2024 Insurance Providers Payer Name Payer Address Payer Phone Subscriber Number Group Number Insured Name Patient Relationship to Insured Coverage Start Date Coverage End Date [employer] [place] [employer] [address] [place] [phone] [id number] Jayden Swannelf - patient is the insured Medical (General) History Medical History History ICD Code Pulmonary emphysema, unspecified emphyse ma type J43.9 History of heart attack I25.2 Anxiety and depression F41.8 Current smoker F17.200 Lung mass R91.8 H/O pneumothorax Z87.09 Surgical History Surgery Date(Month/Year) Lung Surgery 2007 Hospitalization History Reason Date(Month/Year) Pheumothorax 2007
== END 2025-02-14 08:55 | disposition home or self-care (01) ==
LOC: MRI 08:55
PROVIDERS: PCP Nurse Practitioner Family; Visit Provider Nurse Practitioner Family
DX: M54.2 Cervicalgia (principal); M54.41 Lumbago with sciatica, right side; M54.9 Dorsalgia, unspecified
CPT/HCPCS: 72141

== ENCOUNTER 2025-02-20 08:53 | Outpatient (OUT) | payer OTHER, SELFPAY ==
--- NOTE | 2025-02-20 08:58 | MR_ITS ---
The [address] [address] Patient Name: CLOVIS ROBLEDO MRN: [id number] date: 1985 Sex: M Assigned Patient Location: MRI Current Patient Location: MRI Accession/Order Number: [id number] Exam Date: 02/20/2025 09:00 Report Date: 02/20/2025 15:38 At the request of: CRISELDA NEAL Procedure: MR thoracic spine wo con MRI of the thoracic spine performed without contrast INDICATION: Back pain, chronic thoracic pain radiating into both shoulders COMPARISON: CT chest 01/24/2025 FINDINGS: The thoracic vertebral heights, alignments and bone marrow signal is unremarkable. Mild intervertebral space narrowing T4-6 and vuxb-fn-ehjmtopp disc space narrowing T6-T10 with associated disc desiccation. There are small Schmorl's node deformities involving the lower thoracic levels. No abnormal edema to suggest acute compression fracture. Evidence of facet arthropathy notably T10-T12. At T6-T7 there is minimal broad-based central bulge noted without significant mass effect At T7-T8 there is a tiny left central protrusion which contacts the ventral cord is of doubtful clinical clinical significance given the size and the reported symptomatology. Otherwise, no disc protrusion, central canal or neural foraminal narrowing identified throughout the thoracic spine. The paraspinal soft tissues are unremarkable. The thoracic cord is normal signal morphology. MR/MR thoracic spine wo con IMPRESSION: Mild lower thoracic facet arthropathy . Multilevel disc desiccation notably involving the mid thoracic levels. No significant disc protrusion, central canal or significant neural foraminal narrowing identified.. Impression dictated by: Adam Blancas M.D. 02/20/2025 3:38 PM Dictation Location: [place] [address] Electronically authenticated by: [id number] Y Date: 02/20/2025 15:38
--- NOTE | 2025-02-20 08:58 | MR_ITS ---
[address] [address] Patient Name: CLOVIS ROBLEDO MRN: [id number] date: 1985 Sex: M Assigned Patient Location: MRI Current Patient Location: MRI Accession/Order Number: [id number] Exam Date: 02/20/2025 09:00 Report Date: 02/20/2025 16:51 At the request of: CRISELDA NEAL Procedure: MR lumbar spine wo con MRI of the lumbar spine performed without contrast COMPARISON: None INDICATION: Lumbago with right-sided sciatica FINDINGS: Straightening of the normal lumbar lordosis. There is mild disc space narrowing at L4-5. Remaining disc space heights are preserved. Minimal Schmorl's node deformities T12-L4. Multilevel facet arthropathy. Conus medullaris terminates normally inferior plate of L1. Paraspinal soft tissues are unremarkable. T12-L3: No significant disc disease, central canal or neural foraminal narrowing identified. L3-4: No significant disc disease or disc protrusion identified. Mild facet arthropathy. Minimal foraminal narrowing identified. Canal is patent. L4-5: Circumferential bulge with endplate osteophytosis extending both foramina zones. There is bilateral facet arthropathy mild to moderate right mild left. There is moderate crowding right subarticular zone mass effect on the right L5 nerve root. There is there is moderate severe right neural foraminal encroachment with persistent fat planes surrounding the exiting right L4 nerve root. There is a band of T2 signal at the level of the subarticular to foraminal zone noted suggestive of annular fissure. Correlate with possible right L4 radiculopathy. Left foramen mildly narrowed. There is mild canal stenosis. L5-S1: No significant disc disease disc protrusion central canal or neural foraminal narrowing identified. There is jxei-fb-ebvltmyu facet arthropathy noted. Canal is patent. MR/MR lumbar spine wo con IMPRESSION: Degenerative changes at L4-5 greatest the right with findings suggestive of moderate severe right foraminal narrowing with associated fissuring involving the disc at this level. Correlate with right L4 radiculopathy. There is moderate crowding right subarticular zone as well as level, correlate with possible right L5 radiculopathy. Impression dictated by: Adam Blancas M.D. 02/20/2025 4:51 PM Dictation Location: [place] [address] Electronically authenticated by: [id number] Y Date: 02/20/2025 16:51
== END 2025-02-20 08:54 | disposition home or self-care (01) ==
LOC: MRI 08:53
PROVIDERS: PCP Nurse Practitioner Family; Visit Provider Nurse Practitioner Family
DX: M54.2 Cervicalgia (principal); M54.41 Lumbago with sciatica, right side; M54.9 Dorsalgia, unspecified; M51.369 Other intervertebral disc degeneration, lumbar region without mention of lumbar back pain or lower extremity pain
CPT/HCPCS: 72146; 72148